=== PATIENT | female | born 1960 | race Caucasian/White ===

== ENCOUNTER 2024-07-12 13:08 | Outpatient (AMB) | payer MEDICARE, MEDICAID, SELFPAY ==
[2024-07-12 13:13] VITALS: BP 127/81; PULSE 79; RESP 18; TEMP 36.8; O2SAT 94; BMI 33.3
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
== END 2024-07-12 13:50 | disposition home or self-care (01) ==
LOC: HODAHC 13:08
PROVIDERS: PCP Student in an Organized Health Care Education/Training Program; Referring Provider Student in an Organized Health Care Education/Training Program; Supervising Provider Internal Medicine; Visit Provider Student in an Organized Health Care Education/Training Program
DX: E66.9 Obesity, unspecified (principal); Z68.33 Body mass index [BMI] 33.0-33.9, adult; Z76.0 Encounter for issue of repeat prescription; Z91.09 Other allergy status, other than to drugs and biological substances
CPT/HCPCS: 99213; G0463

== ENCOUNTER 2024-08-26 14:27 | Outpatient (AMB) | payer MEDICARE, MEDICAID, SELFPAY ==
[2024-08-26 14:40] VITALS: BP 133/75; PULSE 67; RESP 18; TEMP 36.9; O2SAT 95; BMI 34.0
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
== END 2024-08-26 15:08 | disposition home or self-care (01) ==
PROVIDERS: Supervising Provider Internal Medicine; Visit Provider Student in an Organized Health Care Education/Training Program
DX: J06.9 Acute upper respiratory infection, unspecified (principal); H65.111 Acute and subacute allergic otitis media (mucoid) (sanguinous) (serous), right ear; G43.E09 Chronic migraine with aura, not intractable, without status migrainosus
CPT/HCPCS: 99213; G0463

== ENCOUNTER 2024-10-07 13:18 | Outpatient (AMB) | payer MEDICARE, MEDICAID, SELFPAY ==
[2024-10-07 13:37] VITALS: BP 108/72; PULSE 65; RESP 18; TEMP 36.3; O2SAT 96; BMI 32.8
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
== END 2024-10-07 14:45 | disposition home or self-care (01) ==
LOC: HODAHC 13:18
PROVIDERS: Supervising Provider Internal Medicine; Visit Provider Internal Medicine
DX: S39.92XA Unspecified injury of lower back, initial encounter (principal); W18.09XA Striking against other object with subsequent fall, initial encounter; Y92.009 Unspecified place in unspecified non-institutional (private) residence as the place of occurrence of the external cause; G43.E09 Chronic migraine with aura, not intractable, without status migrainosus; R73.03 Prediabetes; E66.9 Obesity, unspecified; Z68.32 Body mass index [BMI] 32.0-32.9, adult
CPT/HCPCS: 72131; 99213; G0463

== ENCOUNTER → 2024-10-07 | Outpatient (CLI) | payer MEDICARE, MEDICAID, SELFPAY ==
--- NOTE | 2024-10-07 15:27 | XR_ITS ---
Examination: CT lumbar spine, without contrast. 2-D sagittal reconstructions. 2-D coronal reconstructions. 3-D reconstructions. Date and time of exam:October 07, 2024 1616 hours INDICATIONS: Patient fell 10 days ago with injury to the lower back followed by severe lower back pain CTDI: vol (mGy):33 DLP: (mGycm):945 Technique: Multiple 1.25 mm axial sections of the lumbar spine without intravenous contrast have been obtained. 2-D sagittal and coronal reconstructions have been obtained. 3-D reconstructions have been obtained. Low dose protocols were performed. One or more of the following dose reduction techniques were used; automated exposure control, adjustment of the mA and/or KV according to patient size, use of iterative reconstruction technique. Findings: Severe osteopenia Lumbar fusion L4-L5 with anatomic alignment, disc spacer No acute lumbar fracture Right hemilaminectomy L4, right hemilaminectomy L5 Sacral visualized segments intact L5-S1 4 mm right paracentral subarticular disc bulge L4-L5 2 mm central lumbar disc bulge L3-L4 no disc protrusion Incidental note mild right hydronephrosis without definite renal or ureteral calculi IMPRESSION: Satisfactory alignment lumbar vertebral bodies including fusion at the L4-L5 level L5-S1 4 mm right paracentral subarticular disc bulge L4-L5 2 mm central lumbar disc bulge Incidental note mild right hydronephrosis, recommend renal sonography follow-up
== END | disposition home or self-care (01) ==
PROVIDERS: PCP Student in an Organized Health Care Education/Training Program; Referring Provider Student in an Organized Health Care Education/Training Program; Visit Provider Student in an Organized Health Care Education/Training Program
DX: S39.92XA Unspecified injury of lower back, initial encounter (principal); W19.XXXA Unspecified fall, initial encounter; M43.26 Fusion of spine, lumbar region; N13.30 Unspecified hydronephrosis; M51.369 Other intervertebral disc degeneration, lumbar region without mention of lumbar back pain or lower extremity pain; M51.379 Other intervertebral disc degeneration, lumbosacral region without mention of lumbar back pain or lower extremity pain
CPT/HCPCS: 72131

== ENCOUNTER 2024-10-10 14:42 | Outpatient (AMB) | payer MEDICARE, MEDICAID, SELFPAY ==
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
== END 2024-10-10 15:04 | disposition home or self-care (01) ==
LOC: HODAHC 14:42
PROVIDERS: PCP Student in an Organized Health Care Education/Training Program; Referring Provider Student in an Organized Health Care Education/Training Program; Supervising Provider Internal Medicine; Visit Provider Student in an Organized Health Care Education/Training Program
DX: N13.30 Unspecified hydronephrosis (principal); S39.92XD Unspecified injury of lower back, subsequent encounter; W18.30XD Fall on same level, unspecified, subsequent encounter
CPT/HCPCS: 99212; 99213; G0463

== ENCOUNTER → 2024-10-18 | Outpatient (CLI) | payer MEDICARE, MEDICAID, SELFPAY ==
--- NOTE | 2024-10-18 12:30 | XR_ITS ---
Examination: Retroperitoneal ultrasound, complete Technique: Multiple high resolution grayscale images of the retroperitoneum obtained, including kidneys and bladder. Exam date and time:October 18, 2024 1213 hours INDICATIONS: Right hydronephrosis noted on lumbar spine examination October 07, 2024 FINDINGS: Right kidney 9.7 x 4.2 x 4.4 cm cortex 1.1 cm Mild hydronephrosis Left kidney 9.8 x 4.4 x 3.4 cm renal cortex 1.5 cm Mild bilateral renal parenchymal scar formation No bladder mass or bladder calculi Bladder prevoid volume 43 cc IMPRESSION: Bilateral renal cortical thinning Mild right hydronephrosis Consider CT scan abdomen pelvis without contrast follow-up to assess etiology of the right hydronephrosis
== END | disposition home or self-care (01) ==
LOC: CDIM 12:02
PROVIDERS: PCP Student in an Organized Health Care Education/Training Program; Referring Provider Student in an Organized Health Care Education/Training Program; Visit Provider Student in an Organized Health Care Education/Training Program
DX: N13.30 Unspecified hydronephrosis (principal)
CPT/HCPCS: 76770

== ENCOUNTER 2024-10-23 15:16 | Outpatient (AMB) | payer MEDICARE, MEDICAID, SELFPAY ==
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
[2024-10-23 17:20] VITALS: BP 119/79; PULSE 83; RESP 19; TEMP 36.5; O2SAT 95
== END 2024-10-23 15:50 | disposition home or self-care (01) ==
LOC: HODAHC 15:16
PROVIDERS: Supervising Provider Internal Medicine; Visit Provider Internal Medicine
DX: N13.30 Unspecified hydronephrosis (principal); E66.9 Obesity, unspecified; Z68.32 Body mass index [BMI] 32.0-32.9, adult; N18.31 Chronic kidney disease, stage 3a; M51.360 Other intervertebral disc degeneration, lumbar region with discogenic back pain only; G89.29 Other chronic pain
CPT/HCPCS: 99213; G0463

== ENCOUNTER 2024-11-20 13:16 | Outpatient (AMB) | payer MEDICARE, MEDICAID, SELFPAY ==
[2024-11-20 13:33] VITALS: BP 127/84; PULSE 69; RESP 16; TEMP 36.8; O2SAT 94; BMI 32.3
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
== END 2024-11-20 13:48 | disposition home or self-care (01) ==
LOC: HODAHC 13:16
PROVIDERS: Supervising Provider Internal Medicine; Visit Provider Student in an Organized Health Care Education/Training Program
DX: J32.9 Chronic sinusitis, unspecified (principal)
CPT/HCPCS: 99213; G0463

== ENCOUNTER 2024-12-16 13:11 | Outpatient (AMB) | payer MEDICARE, MEDICAID, SELFPAY ==
[2024-12-16 13:44] VITALS: BP 132/88; PULSE 85; RESP 16; TEMP 36.8; O2SAT 95; BMI 31.9
--- NOTE | 2024-12-16 13:44 | PD.RESCLINIC ---
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 Reconciliation, Update PMH in EMR and Vital Signs Coordination of Care: Complex Care and Chronic Disease 1-5, Consent,records obtained, informed consent, Education Simp Pt/Fam and Staff clarify orders Established Patient Charge Established Patient Point Assignment: 85 Established Patient Point Charge: EP Level 3 (80-115)
== END 2024-12-16 14:40 | disposition home or self-care (01) ==
LOC: HODAHC 13:11
PROVIDERS: Supervising Provider Internal Medicine; Visit Provider Student in an Organized Health Care Education/Training Program
DX: K52.9 Noninfective gastroenteritis and colitis, unspecified (principal); Z85.3 Personal history of malignant neoplasm of breast
CPT/HCPCS: 99213; G0463

== ENCOUNTER → 2024-12-16 | Outpatient (CLI) | payer MEDICARE, MEDICAID, SELFPAY ==
[2024-12-16 16:00] LABS: Basophils % (Auto) 0 % (0-2.5); Eosinophils # (Auto) 0.1 Thou/mm3 (0.0-0.5); Eosinophils % (Auto) 1 % (0-10); Hematocrit 49.3 % (36.0-46.0); Hemoglobin 16.3 g/dL (12.0-16.0); Immature Granulocytes % (Auto) 0 % (0-0); Immature Granulocytes Auto 0.04 Thou/mm3 (0.00-0.00); Lymphocytes # (Auto) 1.2 Thou/mm3 (1.0-4.8); Lymphocytes % (Auto) 11 % (10-50); Mean Corpuscular HGB Conc 33.1 g/dl (31.0-37.0); Mean Corpuscular Hemoglobin 30.6 pg (25.0-35.0); Mean Corpuscular Volume 93 fL (80-100); Monocytes # (Auto) 0.6 Thou/mm3 (0.0-0.8); Monocytes % (Auto) 5 % (0-12); Neutrophils % (Auto) 82 % (37-80); Nucleated Red Blood Cell % 0 /100 WBC (0); Platelet Count 272 Thou/mm3 (140-440); RDW Standard Deviation 46.3 fL (36.4-46.3); Red Blood Count 5.33 Miln/mm3 (4.00-5.20)
[2024-12-16 16:14] LABS: Albumin, Serum 4.8 gm/dL (3.4-4.8); Anion Gap 10 (7-16); BUN/Creatinine Ratio 13 Ratio (12-20); Blood Urea Nitrogen 15 mg/dL (9-23); Carbon Dioxide 29.3 mMol/L (20.0-31.0); Chloride 104 mMol/L (98-107); Creatinine (Component) 1.2 mg/dL (0.6-1.3); Glucose 106 mg/dL (74-106); Osmolality,Calculated 285 (275-295); Phosphorous 3.5 mg/dL (2.4-5.1); Potassium 4.4 mMol/L (3.4-5.1); Sodium 143 mMol/L (136-145); eGFR 50 See Note
== END | disposition home or self-care (01) ==
PROVIDERS: PCP Student in an Organized Health Care Education/Training Program; Referring Provider Student in an Organized Health Care Education/Training Program; Visit Provider Student in an Organized Health Care Education/Training Program
DX: K52.9 Noninfective gastroenteritis and colitis, unspecified (principal)
CPT/HCPCS: 36415; 80069; 85025

== ENCOUNTER 2025-01-09 13:02 | Outpatient (AMB) | payer MEDICARE, MEDICAID, SELFPAY ==
[2025-01-09 13:19] VITALS: BP 117/77; PULSE 74; RESP 16; TEMP 35.8; O2SAT 95; BMI 32.8
--- NOTE | 2025-01-09 13:19 | ACNOTE_ITS ---
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 depressive disorder, single episode, unspecified Assessment & Plan: -pt has history of majordepression, and is stable Plan: -refilled pts home paroxetine (3) Chronic lower back pain: Status: Acute Qualifiers: Back pain laterality: bilateral Sciatica presence: unspecified whether sciatica present Qualified Code(s): M54.50 - Low back pain, unspecified; G89.29 - Other chronic pain Assessment & Plan: -pt has long hisotry of chronic back pain, for which has been taking oxycodone 10mg and her pain is well controlled Plan: -refill home oxycodone 10mg, cures reviewed (4) Migraine: Status: Acute Qualifiers: Intractability: intractable Migraine type: chronic migraine (15 or more days per month) without aura Status migrainosus presence: without status migrainosus Qualified Code(s): G43.719 - Chronic migraine without aura, intractable, without status migrainosus Assessment & Plan: -Although pt state she is not a fan of taking rizatriptan daily for migrains. However, so far anything else she has tried did not elleviate her migrains. Pt was prescribed an injectable CGRP inhibitor by neurologist, however insurance did not cover it. Plan: -Will reattempt to prescribe injectable CGRP inhibitor for insurance approval. In the mean time , refilled home rizatriptan 10mg (5) Osteoarthritis: Status: Acute Plan: -Refilled home diclofenec cream 1% Orders: Orders Comprehensive Metabolic Panel 1 Month Parathyroid Hormone Intact 1 Month Additional Assessment Internal Medicine Attending Note: Case discussed with and agree with note and management plan of Resident Physician as per Resident's Note above. Issues of concern for present visit are as follows: Follow-up visit. Gastroenteritis symptoms have resolved. Labs reviewed. Renal function stable. Calcium mildly elevated, we will check a serum PTH and repeat the level as well. Needed refills are provided today. Chronic issues as noted. Chronic narcotic pain medication use reviewed. The patient has been on present dose for years. Aware of addiction/dependence nature of medication. No signs of overuse or abuse. Has been prescribed naloxone in April 2024. Blake Roberts MD Advanced Care Planning Advance care planning discussed with:: patient Physician Billing Established Patient Established Patient: E/M Level 3-CPT 47085 Office Procedures [facility] Level of Care Nursing/Assessment Patient Status: Established Patient Nursing Assessment/Reassessment: Medication Reconciliation, Update PMH in EMR and Vital Signs Coordination of Care: Complex Care and Chronic Disease 1-5, Consent,records obtained, informed consent, Education Simp Pt/Fam, Results/Orders obtained and Staff clarify orders Established Patient Charge Established Patient Point Assignment: 90 Established Patient Point Charge: EP Level 3 (80-115)
== END 2025-01-09 14:35 | disposition home or self-care (01) ==
LOC: HODAHC 13:02
PROVIDERS: Supervising Provider Internal Medicine
DX: E83.52 Hypercalcemia (principal); N13.30 Unspecified hydronephrosis; N28.89 Other specified disorders of kidney and ureter; F32.9 Major depressive disorder, single episode, unspecified; G89.29 Other chronic pain; M54.50 Low back pain, unspecified; G43.719 Chronic migraine without aura, intractable, without status migrainosus; M19.90 Unspecified osteoarthritis, unspecified site; Z76.0 Encounter for issue of repeat prescription
CPT/HCPCS: 99213; G0463

== ENCOUNTER 2025-02-26 14:44 | Outpatient (AMB) | payer MEDICARE, MEDICAID, SELFPAY ==
[2025-02-26 15:07] VITALS: BP 130/86; PULSE 72; RESP 18; TEMP 36.6; O2SAT 97; BMI 33.0
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
== END 2025-02-26 15:38 | disposition home or self-care (01) ==
LOC: HODAHC 14:44
PROVIDERS: Supervising Provider Internal Medicine
DX: S80.262A Insect bite (nonvenomous), left knee, initial encounter (principal); W57.XXXA Bitten or stung by nonvenomous insect and other nonvenomous arthropods, initial encounter
CPT/HCPCS: 99213; G0463

== ENCOUNTER → 2025-02-27 | Outpatient (CLI) | payer MEDICARE, MEDICAID, SELFPAY ==
[2025-02-27 13:21] LABS: Parathyroid Hormone Intact 82.6 pg/ml (18.5-88.0)
[2025-02-27 13:23] LABS: Alanine Aminotransferase 20 U/L (10-49); Albumin, Serum 4.4 gm/dL (3.4-4.8); Albumin/Globulin Ratio 1.8 (1.2-2.2); Alkaline Phosphatase 78 U/L (46-116); Anion Gap 10 (7-16); Aspartate Amino Transferase 23 U/L (0-34); BUN/Creatinine Ratio 12 Ratio (12-20); Bilirubin,Total 0.7 mg/dL (0.3-1.2); Blood Urea Nitrogen 14 mg/dL (9-23); Calcium 9.4 mg/dL (8.3-10.6); Calcium (Corrected) 9.4 mg/dL (8.5-10.1); Carbon Dioxide 31.9 mMol/L (20.0-31.0); Chloride 105 mMol/L (98-107); Creatinine (Component) 1.2 mg/dL (0.6-1.3); Globulin 2.5 gm/dL (2.3-3.5); Glucose 110 mg/dL (74-106); Osmolality,Calculated 293 (275-295); Phosphorous 3.4 mg/dL (2.4-5.1); Potassium 4.8 mMol/L (3.4-5.1); Sodium 147 mMol/L (136-145); Total Protein 6.9 gm/dL (5.7-8.2); eGFR 50 See Note
== END | disposition home or self-care (01) ==
DX: Z00.00 Encounter for general adult medical examination without abnormal findings (principal)
CPT/HCPCS: 36415; 80053; 83970; 84100

== ENCOUNTER → 2025-02-28 | Outpatient (CLI) | payer MEDICARE, MEDICAID, SELFPAY ==
--- NOTE | 2025-02-28 14:00 | XR_ITS ---
Examination: CT abdomen and pelvis without contrast. Coronal 3-D reconstructions. Sagittal 2-D reconstructions. Date and time of exam:February 28, 2025 1428 hours INDICATIONS: Back pain worsening flank pain several days CTDI: vol (mGy): 12.7 DLP: (mGycm): 64 Technique: Axial images of the abdomen have been obtained, 3 mm slice thickness Intravenous contrast material has not been administered. Low dose protocols were performed. One or more of the following dose reduction techniques were used; automated exposure control, adjustment of the mA and/or KV according to patient size, use of iterative reconstruction technique. Findings: No focal liver or splenic lesion Lap band device Spleen is not enlarged No pancreatic mass Mild right hydronephrosis, no ureteral calculi No pericecal inflammatory change Colonic diverticulosis, no diverticulitis Urinary bladder intact Artificial disc L4-L5 IMPRESSION: Mild right hydronephrosis, no ureteral calculi, consider urinary tract infection
== END | disposition home or self-care (01) ==
LOC: CCTX 13:32
PROVIDERS: PCP Student in an Organized Health Care Education/Training Program; Referring Provider Student in an Organized Health Care Education/Training Program; Visit Provider Student in an Organized Health Care Education/Training Program
DX: N13.30 Unspecified hydronephrosis (principal)
CPT/HCPCS: 74176

== ENCOUNTER 2025-03-12 14:24 | Outpatient (AMB) | payer MEDICARE, MEDICAID, SELFPAY ==
[2025-03-12 15:04] VITALS: BP 144/85; PULSE 72; RESP 18; TEMP 36.8; O2SAT 95; BMI 32.8
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
== END 2025-03-12 16:01 | disposition home or self-care (01) ==
LOC: HODAHC 14:24
DX: N30.00 Acute cystitis without hematuria (principal)
CPT/HCPCS: 81001; 87077; 87086; 87186; 99213; G0463

== ENCOUNTER → 2025-03-12 | Outpatient (CLI) | payer MEDICARE, MEDICAID, SELFPAY ==
[2025-03-12 15:58] LABS: Collection Type, Urine Clean Catch
[2025-03-12 16:40] LABS: Bacteria,Urine 1+; Bilirubin,Urine Negative (Negative); Blood,Urine 1+ (Negative); Glucose, Urine Negative (Negative); Ketones,Urine Negative (Negative); Leukocyte Esterase,Urine Positive (Negative); Nitrite,Urine Positive (Negative); Protein,Urine 1+ (Neg - Trace); RBC,Urine 13 /hpf (0-3); Squamous Epithelial Cell,Urine 5 /hpf (0-5); Urobilinogen,Urine Negative mg/dL (0.0-1.0); WBC,Urine 2168 /hpf (0-5)
[2025-03-12 16:43] LABS: Clarity,Urine Cloudy (Clear/Hazy); Color,Urine Lt Yellow (Lt Yel-Yel); Culture Indicated,Urine Yes
== END | disposition home or self-care (01) ==
DX: R39.9 Unspecified symptoms and signs involving the genitourinary system (principal)
CPT/HCPCS: 81001; 87077; 87086; 87186

== ENCOUNTER 2025-03-19 13:50 | Outpatient (AMB) | payer MEDICARE, MEDICAID, SELFPAY ==
[2025-03-19 14:13] VITALS: BP 113/74; PULSE 82; RESP 18; TEMP 36.4; O2SAT 91; BMI 32.1
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
== END 2025-03-19 14:44 | disposition home or self-care (01) ==
LOC: HODAHC 13:50
PROVIDERS: Supervising Provider Internal Medicine
DX: N30.00 Acute cystitis without hematuria (principal)
CPT/HCPCS: 99213; G0463

== ENCOUNTER 2025-03-26 14:52 | Outpatient (AMB) | payer MEDICARE, MEDICAID, SELFPAY ==
[2025-03-26 15:03] VITALS: BP 122/85; PULSE 75; RESP 17; TEMP 35.9; O2SAT 93; BMI 32.5
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
== END 2025-03-26 16:04 | disposition home or self-care (01) ==
LOC: HODAHC 14:52
PROVIDERS: Supervising Provider Internal Medicine
DX: R10.32 Left lower quadrant pain (principal); R10.31 Right lower quadrant pain; M53.3 Sacrococcygeal disorders, not elsewhere classified
CPT/HCPCS: 99213; G0463

== ENCOUNTER 2025-04-11 10:49 | Outpatient (AMB) | payer MEDICARE, MEDICAID, SELFPAY ==
[2025-04-11 11:45] VITALS: BP 148/85; PULSE 72; RESP 18; TEMP 36.8; O2SAT 95; BMI 33.5
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
== END 2025-04-11 13:13 | disposition home or self-care (01) ==
LOC: HODAHC 10:49
PROVIDERS: Supervising Provider Internal Medicine
DX: S39.92XA Unspecified injury of lower back, initial encounter (principal); W19.XXXA Unspecified fall, initial encounter; Y93.89 Activity, other specified; Y92.810 Car as the place of occurrence of the external cause; R20.2 Paresthesia of skin; M79.604 Pain in right leg
CPT/HCPCS: 99213; G0463

== ENCOUNTER 2025-04-25 09:40 | Outpatient (AMB) | payer MEDICARE, MEDICAID, SELFPAY ==
[2025-04-25 10:07] VITALS: BP 131/85; PULSE 71; RESP 18; TEMP 36.6; O2SAT 97; BMI 33.3
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
== END 2025-04-25 11:10 | disposition home or self-care (01) ==
LOC: HODAHC 09:40
PROVIDERS: Supervising Provider Internal Medicine
DX: S39.92XA Unspecified injury of lower back, initial encounter (principal); W19.XXXA Unspecified fall, initial encounter; R20.2 Paresthesia of skin; N30.00 Acute cystitis without hematuria; M51.360 Other intervertebral disc degeneration, lumbar region with discogenic back pain only
CPT/HCPCS: 72100; 99213; G0463

== ENCOUNTER → 2025-04-25 | Outpatient (CLI) | payer MEDICARE, MEDICAID, SELFPAY ==
--- NOTE | 2025-04-25 | XR_ITS ---
Examination: Lumbar spine 3 views Technique one AP lateral coned lateral lower lumbar spine 3 views Date and time: April 25, 2025 1141 hours INDICATIONS: Patient fell 2 weeks ago with injury to lower back, lower back pain, history multiple lumbar spine surgeries. FINDINGS: Moderate osteopenia. Lumbar fusion L4-L5 with satisfactory alignment, satisfactory position orthopedic hardware Diffuse mild lumbar disc narrowing No spondylolisthesis No lumbar fracture IMPRESSION:: Lumbar fusion L4-L5 with satisfactory alignment Mild diffuse lumbar degenerative disc disease
== END | disposition home or self-care (01) ==
DX: M51.360 Other intervertebral disc degeneration, lumbar region with discogenic back pain only (principal); M43.26 Fusion of spine, lumbar region; S39.92XA Unspecified injury of lower back, initial encounter; W19.XXXA Unspecified fall, initial encounter
CPT/HCPCS: 72100

== ENCOUNTER → 2025-04-25 | Outpatient (CLI) | payer MEDICARE, MEDICAID, SELFPAY ==
[2025-04-25 12:23] LABS: Collection Type, Urine Clean Catch; RBC,Urine 0 /hpf (0-3)
[2025-04-25 13:35] LABS: Bilirubin,Urine Negative (Negative); Blood,Urine Negative (Negative); Clarity,Urine Clear (Clear/Hazy); Color,Urine Lt-Yellow (Lt Yel-Yel); Culture Indicated,Urine Not Indicated; Glucose, Urine Negative (Negative); Ketones,Urine Negative (Negative); Leukocyte Esterase,Urine Negative (Negative); Nitrite,Urine Negative (Negative); PH,Urine 5.5 (5.0-7.0); Protein,Urine Negative (Neg - Trace); Specific Gravity,Urine 1.014 (1.001-1.035); Squamous Epithelial Cell,Urine 1 /hpf (0-5); Urobilinogen,Urine Negative mg/dL (0.0-1.0); WBC,Urine < 1 /hpf (0-5)
== END | disposition home or self-care (01) ==
DX: R39.9 Unspecified symptoms and signs involving the genitourinary system (principal)
CPT/HCPCS: 81001

== ENCOUNTER → 2025-05-06 | Outpatient (CLI) | payer MEDICARE, MEDICAID, SELFPAY ==
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
== END | disposition home or self-care (01) ==
LOC: SMRI 14:35
DX: M51.360 Other intervertebral disc degeneration, lumbar region with discogenic back pain only (principal); G95.20 Unspecified cord compression
CPT/HCPCS: 72148

== ENCOUNTER 2025-05-22 13:59 | Outpatient (AMB) | payer MEDICARE, MEDICAID, SELFPAY ==
[2025-05-22 14:24] VITALS: BP 99/66; PULSE 94; RESP 18; TEMP 36.4; O2SAT 96; BMI 32.8
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
== END 2025-05-22 15:09 | disposition home or self-care (01) ==
LOC: HODAHC 13:59
DX: M51.370 Other intervertebral disc degeneration, lumbosacral region with discogenic back pain only (principal); G95.29 Other cord compression; N32.81 Overactive bladder; J30.2 Other seasonal allergic rhinitis; R21 Rash and other nonspecific skin eruption; E78.5 Hyperlipidemia, unspecified
CPT/HCPCS: 99213; G0463

== ENCOUNTER → 2025-05-27 | Outpatient (CLI) | payer MEDICARE, MEDICAID, SELFPAY ==
[2025-05-27 11:48] LABS: Basophils # (Auto) 0.1 Thou/mm3 (0.0-0.2); Basophils % (Auto) 1 % (0-2.5); Eosinophils # (Auto) 0.3 Thou/mm3 (0.0-0.5); Eosinophils % (Auto) 4 % (0-10); Hematocrit 45.8 % (36.0-46.0); Hemoglobin 15.3 g/dL (12.0-16.0); Immature Granulocytes Auto 0.02 Thou/mm3 (0.00-0.00); Lymphocytes # (Auto) 1.9 Thou/mm3 (1.0-4.8); Lymphocytes % (Auto) 27 % (10-50); Mean Corpuscular HGB Conc 33.4 g/dl (31.0-37.0); Mean Corpuscular Hemoglobin 31.0 pg (25.0-35.0); Mean Corpuscular Volume 93 fL (80-100); Monocytes # (Auto) 0.4 Thou/mm3 (0.0-0.8); Monocytes % (Auto) 6 % (0-12); Neutrophils # (Auto) 4.2 Thou/mm3 (1.8-7.7); Neutrophils % (Auto) 61 % (37-80); Nucleated Red Blood Cell # 0.00 Thou/mm3 (0.00-0.00); Nucleated Red Blood Cell % 0 /100 WBC (0); Platelet Count 282 Thou/mm3 (140-440); RDW Standard Deviation 47.0 fL (36.4-46.3); Red Blood Count 4.93 Miln/mm3 (4.00-5.20); White Blood Count 6.9 Thou/mm3 (3.6-11.0)
[2025-05-27 11:51] LABS: Glucose Estimated Average 117 mg/dL (80-131); Hemoglobin A1C 5.7 % Hgb (4.8-6.0)
[2025-05-27 12:00] LABS: T4 (Thyroxine) 7.2 mcg/dL (4.5-10.9)
[2025-05-27 12:02] LABS: Alanine Aminotransferase 17 U/L (10-49); Albumin, Serum 4.4 gm/dL (3.4-4.8); Albumin/Globulin Ratio 1.8 (1.2-2.2); Alkaline Phosphatase 82 U/L (46-116); Anion Gap 10 (7-16); Aspartate Amino Transferase 19 U/L (0-34); BUN/Creatinine Ratio 13 Ratio (12-20); Bilirubin,Total 0.6 mg/dL (0.3-1.2); Blood Urea Nitrogen 15 mg/dL (9-23); Calcium 10.5 mg/dL (8.3-10.6); Calcium (Corrected) 10.5 mg/dL (8.5-10.1); Carbon Dioxide 32.3 mMol/L (20.0-31.0); Cardiac Risk Estimate 2.8 RATIO (3.7-5.6); Chloride 104 mMol/L (98-107); Cholesterol 254 mg/dL (132-200); Creatinine (Component) 1.2 mg/dL (0.6-1.3); Globulin 2.4 gm/dL (2.3-3.5); Glucose 98 mg/dL (74-106); HDL Cholesterol 91 mg/dL (40-60); LDL Cholesterol,Calculated 145 mg/dL (0-130); Osmolality,Calculated 291 (275-295); Potassium 5.0 mMol/L (3.4-5.1); Sodium 146 mMol/L (136-145); Thyroid Stimulating Hormone 2.06 uIU/mL (0.55-4.78); Total Protein 6.8 gm/dL (5.7-8.2); Triglycerides 89 mg/dL (30-150); Vitamin D 25 Hydroxy Total 31.5 ng/mL (7.3-40.2); eGFR 50 See Note
[2025-05-28 11:52] LABS: Cocci Serology, IgM Negative (Negative)
[2025-05-30 11:05] LABS: Cocci Serology, IgG Negative (Negative)
== END | disposition home or self-care (01) ==
LOC: COPL 10:20
DX: E78.5 Hyperlipidemia, unspecified (principal); E66.01 Morbid (severe) obesity due to excess calories
CPT/HCPCS: 36415; 80053; 80061; 82306; 83036; 84436; 84443; 85025; 86331; 86635

== ENCOUNTER 2025-06-06 09:12 | Outpatient (AMB) | payer MEDICARE, MEDICAID, SELFPAY ==
[2025-06-06 09:34] VITALS: BP 103/67; PULSE 77; RESP 17; TEMP 36.3; O2SAT 96; BMI 33.3
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
== END 2025-06-06 10:52 | disposition home or self-care (01) ==
LOC: HODAHC 09:12
PROVIDERS: Supervising Provider Internal Medicine
DX: S39.92XA Unspecified injury of lower back, initial encounter (principal); W17.89XA Other fall from one level to another, initial encounter; H91.91 Unspecified hearing loss, right ear; M51.360 Other intervertebral disc degeneration, lumbar region with discogenic back pain only; G95.29 Other cord compression
CPT/HCPCS: 99213; G0463

== ENCOUNTER 2025-06-29 14:48 | Observation (INO) | payer MEDICARE, MEDICAID, SELFPAY ==
[2025-06-29] VITALS (11 sets, daily range): BP systolic 108–147; BP diastolic 77–92; PULSE 78–225; RESP 14–96; TEMP 37–37.1; O2SAT 97–100
[2025-06-29] MEDS: FAMOTIDINE INJ 10 MG/ML VIAL 2 ML 40 MG IVP (15:25)
[2025-06-29] MEDS: MethylPREDNISolone SOD SUCC 62.5 MG/ML 2ML VIAL 125 MG IVP (15:25)
--- NOTE | 2025-06-29 15:28 | EKG_ITS ---
[facility] Test Date: 2025-06-29 Pat Name: JEROD MCDOWELL Department: Room: - Gender: Female [employer]: : 1960 Requested By: Mathieu Beltran Order Number: [id number] Reading MD: Mathieu Beltran Measurements Intervals [place] Rate: 77 P: 18 MO: 190 QRS: 228 QRSD: 101 T: 13 QT: 374 QTc: 425 Interpretive Statements SINUS RHYTHM POSSIBLE RIGHT VENTRICULAR HYPERTROPHY [SOME/ALL OF: PROMINENT R IN V1, LATE TRANSITION, RAD, AMADOR, SSS] POSSIBLE ANTERIOR MYOCARDIAL INFARCTION , PROBABLY OLD [30 ms Q WAVE IN V3/V4, OR R < 0.2 mV IN V4] Compared to ECG 02/04/2023 18:51:27 Left anterior fascicular block no longer present Myocardial infarct finding still present /store/S0/[id number]/ecg/[id number]
--- NOTE | 2025-06-29 15:28 | XR_ITS ---
Examination: PA chest single view Technique upright PA chest single view Date and time: June 29, 2025, 1533 hrs. Indications: Difficulty breathing today. Findings: Mild prominence of ventricle Mild elevation right hemidiaphragm. No pneumonia or pulmonary edema Moderate osteopenia Impression: No active disease
[2025-06-29] MEDS: RINGERS LACTATED 1000 ML 1,000 ML 999 ML IV (15:30)
--- NOTE | 2025-06-29 15:37 | EDNOTE_ITS ---
ED SOB =RME/HPI General Chief Complaint: Arrhythmia/Palpitations Stated Complaint: STUNG BY RED ANTS, DIFF BREATHING Time Seen by Provider: 06/29/25 15:06 Arrival date/time: 06/29/25 14:48 Limitations: no limitations RME / HPI RME / HPI Narrative: DR. TREJO MAIN ED EVALUATION: 64-year-old female presents to the Emergency Department with complaints of shortness of breath and allergic reaction after being bitten by red ants approximately 2 hours prior to arrival, which she is allergic to. She reports associated lightheadedness and dizziness. 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 Allergies include bacitracin, neomycin, and polymyxin B. Allergies to red aunts as well. Related Data Previous Rx's ?Medication ?Instructions ?Recorded inhalational spacing device #1 ea 01/13/24 (BreatheRite Valved MDI Chamber spacer) naloxone 4 mg/actuation nasal 4 mg intranasal Q2M PRN opioid 04/03/24 spray (Narcan) overdose #2 ea gabapentin 300 mg capsule 300 mg PO BID #60 caps 06/10 atorvastatin 40 mg tablet 40 mg PO QHS #30 tabs cholecalciferol (vitamin D3) 1,250 1,250 mcg PO QWEEK #4 caps 07/26/24 mcg (50,000 unit) capsule fexofenadine 180 mg tablet 180 mg PO QDAY #30 tabs montelukast 10 mg tablet 10 mg PO QDAY 30 days #30 ta bs 10/23/24 nystatin 100,000 unit/gram topical 1 applic topical BI D #30 grams 10/23/24 powder trazodone 50 mg tablet 50 mg PO QHS 30 days #30 tab s 10/23/24 albuterol sulfate 90 mcg/actuation 2 inh inhalation Q6 H PRN shortness 10/24/24 breath activated powder inhaler of breath or wheezing #1 ea tirzepatide (weight loss) 2.5 2.5 mg (0.5 mL) subcut Q WEEK #2 mL 11/14/24 mg/0.5 mL subcutaneous pen injector promethazine 25 mg tablet 25 mg PO TID PRN nausea and 12/16/24 vomiting #7 tabs scopolamine base 1 mg over 3 days 1 patch transdermal Q3D persistent 12/16/24 transdermal patch vomiting #4 ea triamcinolone acetonide 0.5 % 1 applic topical BID #15 grams 02/26/25 topical cream methocarbamol 750 mg tablet 750 mg PO TID PRN muscle p ain 30 03/12/25 days #90 tabs paroxetine HCl 30 mg tablet 30 mg PO QDAY 30 days #30 tabs 04/10/25 rizatriptan 10 mg tablet 10 mg PO .COMPLEX #30 tabs 0 04/10/25 oxycodone 10 mg tablet 10 mg PO QID PRN pain #120 t abs 05/27/25 diclofenac sodium 1 % topical gel 4 g topical QID #3 t ubes 06/06/25 (Arthritis Pain (diclofenac)) ondansetron HCl 4 mg tablet 4 mg PO Q8H PRN nausea and 06/06/25 vomiting #90 tabs tolterodine 4 mg capsule,extended 4 mg PO QDAY 1 month #30 caps 06/06/25 release 24 hr Allergies Allergy/AdvReac Type Severity Reaction Status Date / Time bacitracin (From Allergy Intermediate Rash Verified 06/29/25 15:33 Polysporin(bacitracin base)) neomycin Allergy Intermediate Rash Verified 06/29/25 15:33 polymyxin B (From Allergy Intermediate Rash Verified 06/29/25 15:33 Polysporin(bacitracin base)) bee venom protein (honey bee) AdvReac Severe Anaphylaxis Verified 06/29/25 15:33 red ants AdvReac Severe Anaphylaxis Uncoded 06/29/25 15:33 Review of Systems Review of Systems Systems Reviewed: All systems reviewed, normal except as documented Past Medical History Past Medical History NEUROLOGIC: Positive Migraine and Spinal Cord Injury RESPIRATORY: Positive Asthma (seasonal) GASTROINTESTINAL: Positive Gall Bladder Disease, Gastrointestinal Bleed (from diverticulitis) and Diverticulitis GENITOURINARY: Positive Genitourinary Disorders (suspended bladder 5- 6 times) REPRODUCTIVE: Positive Breast Cancer (jace), Endometriosis and Uterine Prolapse MUSCULOSKELETAL: Positive Arthritis and Fractures (spine and neck) ENT: Positive Ear Infection PSYCHO/SOCIAL: Positive Anxiety OTHER HISTORY: Positive Radiation Therapy (oct), Chicken Pox, Measles and Breast Cancer (jace) Surgical History SURGICAL: Positive Ear Surgery, Eye Surgery (right), Abdominal Surgery (lap band not in use), Gastric Bypass Surgery, Neurologic Surgery, Mastectomy (jace.) and Hysterectomy Social History SMOKING STATUS: Never smoker SECOND HAND EXPOSURE: No SUBSTANCE USE: does not use ED Exam General Limitations: Present no limitations General appearance: Present alert, in distress (uncomfortable in mild distress) and other (no stridor) Head Head exam: Present atraumatic, normocephalic and normal inspection Eye Eye exam: Present normal appearance, PERRL and EOMI ENT ENT exam: Present normal exam, normal oropharynx and mucous membranes moist Neck Neck exam: Present normal inspection, full ROM and trachea midline Chest Chest inspection: Present normal inspection and symmetric chest wall rise Respiratory Respiratory exam: Present normal lung sounds bilaterally Cardiovascular Cardiovascular exam: Present regular rate, normal rhythm and normal heart sounds Abdominal Exam Abdominal exam: Present soft and normal bowel sounds Extremities Exam Extremities exam: Present full ROM Back Exam Back exam: Present normal inspection and full ROM Neurological Exam Neurological exam: Present alert, oriented X3 and CN II-XII intact Psychiatric Psychiatric exam: Present normal affect and normal mood Skin Skin exam: Present warm and other (scattered area of erythema of the lower and upper extremities) Course Quality Measures none Orders Category Date Time Status Set Illustrator Q4H START 00 Care 06/29/25 15:41 Active EKG (ED ONLY) *Do not use* NOW Care 06/29/25 15:28 Completed EKG (ED Only) Stat Exams 06/29/25 15:28 Ordered XR chest 1V Stat Exams 06/29/25 15:28 Completed B-Type Natriuretic Peptide Stat Lab 06/29/25 15:20 Completed CBC Stat Lab 06/29/25 15:20 Completed Comprehensive Metabolic Panel Stat Lab 06/29/25 16:28 Completed Drug Screen,Urine Stat Lab 06/29/25 16:20 Completed LDH (Lactate Dehydrogenase) Stat Lab 06/29/25 16:28 Completed Magnesium Stat Lab 06/29/25 16:28 Completed Partial Thromboplastin Time Stat Lab 06/29/25 16:28 Completed Prothrombin Time with INR Stat Lab 06/29/25 16:28 Completed T4 (Thyroxine) Stat Lab 06/29/25 16:28 Completed Thyroid Stimulating Hormone Stat Lab 06/29/25 16:28 Completed Troponin I Stat Lab 06/29/25 16:28 Completed Urinalysis, C/S if Indicated Stat Lab 06/29/25 16:20 Completed Adenosine 6mg Inj [Adenocard Inj] Med 06/29/25 15:41 Discontinued 12 mg .ROUTE .STK-MED ONE Adenosine 6mg Inj [Adenocard Inj] Med 06/29/25 15:20 Discontinued 6 mg IVP X1 ONE DiphenhydrAMINE INJ [Benadryl Inj] Med 06/29/25 15:12 Discontinued 50 mg IVP X1 ONE Famotidine Inj [Pepcid Inj] Med 06/29/25 15:15 Discontinued 20 mg .ROUTE .STK-MED ONE Famotidine Inj [Pepcid Inj] Med 06/29/25 15:12 Discontinued 40 mg IVP X1 ONE LORazepam [Ativan] Med 06/29/25 15:28 Discontinued 0.5 mg PO X1 ONE Labetalol IV [Trandate IV] Med 06/29/25 15:29 Discontinued 10 mg IVP X1 ONE Labetalol IV [Trandate IV] Med 06/29/25 15:46 Discontinued 5 mg IVP X1 ONE MethylPREDNISolone.* [SoluMEDROL Inj] Med 06/29/25 15:15 Discontinued 125 mg .ROUTE .STK-MED ONE MethylPREDNISolone.* [SoluMEDROL Inj] Med 06/29/25 15:12 Discontinued 125 mg IVP X1 ONE Ringers Lactated 1000 ml [Lactated Ringers] 1,000 ml Med 06/29/25 15:12 Discontinued IV 999 mls/hr Vital Signs Vital signs: Vital Signs Temperature 98.6 F 06/29/25 15:03 Pulse Rate 225 H 06/29/25 15:03 Respiratory Rate 28 H 06/29/25 15:03 Pulse Oximetry (%) 98 06/29/25 15:03 Oxygen Delivery Method Room Air 06/29/25 15:03 Shortness of Breath / Dyspnea MDM Narrative MDM Narrative:: Patient is a 64-year-old female with medical history notable for hyperlipidemia asthma, breast cancer status post bilateral mastectomy in May 2022, radiation and hormonal therapy, multiple musculoskeletal surgeries that in the emergency d epartment feeling lightheaded, after being bit by multiple fire ants. Patient had a scattered rash maculopapular on her upper and lower extremities, approximately 2 to 3 mm lesions, without surrounding warmth or erythema fluctuance or crepitus, not raised less likely hives. Patient not in respiratory distress, no stridor, no oropharyngeal swelling, less likely anaphylactic reaction. Patient is allergic to bee stings. Patient also presented with SVT with a heart rate in the 240s, patient did not respond to ice, nor bearing down however she did respond to Valsalva through blowing through a syringe. Patient went into SVT greater than 5 times with heart rates up in the 240s to 60s. Blood pressure maintained greater than 140s throughout, and patient mentation was always maintained. I did provide patient with methylprednisolone and famotidine for the possible allergic reaction however no Benadryl because she had taken at home, no epinephrine because of no sign of respiratory distress and patient head CT. Given patient went into SVT multiple times, we were going to cardiovert with adenosine however patient responded once again well to Valsalva through a syringe at which point we provided patient with labetalol which resulted in patient maintaining her heart rate in the 70s blood pressure appropriate. We ordered labs EKG and chest x-ray. Labs without leukocytosis, no left shift, patient hemoglobin 16.9. Metabolic panel without any acute electrolyte abnormality, no significant electrolyte abnormalities, troponin 0.037 BNP not elevated thyroid studies unremarkable. Chest x-ray unremarkable. Given patient presentation, will consult rose grader and request admission given recurrent episodes of SVT and patient does not have any cardiovascular disease history. Elisabeth Manzanares am scribing for and in the presence of Dr. Trejo. 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 Allergies include bacitracin, neomycin, and polymyxin B. Allergies to red aunts as well. How is presenting disease/condition affected by chronic disease/condition?: exacerbated by Evaluation data The following diagnostics were reviewed and interpreted by me:: lab results, radiology exam(s) and EKG tracing(s) Lab and/or radiology exams considered but not ordered:: none Interpretation Summary: See MDM narrative above. RADIOLOGY Procedure(s): XR chest 1V Accession Number(s): [id number] cc: Mathieu Coe NP; Samuel Larkin MD; NO PRIMARY/FAMILY,PHYSICIAN~ Examination: PA chest single view Technique upright PA chest single view Date and time: June 29, 2025, 1533 hrs. Indications: Difficulty breathing today. Findings: Mild prominence of ventricle Mild elevation right hemidiaphragm. No pneumonia or pulmonary edema Moderate osteopenia Impression: No active disease Dictated By: Samuel Larkin MD Medications / Prescriptions Medications or Prescriptions considered but not ordered:: none Medication administrations:: Medication Administration History Discontinued Medications Adenosine (Adenosine Inj 3 Mg/Ml Vial) 6 mg IVP X1 ONE Stop: 06/29/25 15:21 Last Admin: 06/29/25 17:52 Dose: Not Given Documented By: DB Non-Admin Reason: Change of Condition Adenosine (Adenosine Inj 3 Mg/Ml Vial) Confirm Administered Dose 12 mg .ROUTE .STK-MED ONE Stop: 06/29/25 15:42 Last Admin: 06/29/25 15:49 Dose: Not Given Documented By: DB Non-Admin Reason: Duplicate Medication on eMAR Diphenhydramine HCl (Diphenhydramine Inj 50 Mg/Ml Vial) 50 mg IVP X1 ONE Stop: 06/29/25 15:13 Last Admin: 06/29/25 15:29 Dose: Not Given Documented By: DB Non-Admin Reason: Cancelled by Provider Famotidine (Famotidine Inj 10 Mg/Ml Vial 2 Ml) 40 mg IVP X1 ONE Stop: 06/29/25 15:13 Last Admin: 06/29/25 15:25 Dose: 40 mg Documented By: JENS Famotidine (Famotidine Inj 10 Mg/Ml Vial 2 Ml) Confirm Administered Dose 20 mg .ROUTE .STK-MED ONE Stop: 06/29/25 15:16 Last Admin: 06/29/25 15:28 Dose: Not Given Documented By: JENS Non-Admin Reason: Duplicate Medication on eMAR Lactated Ringer's (Lactated Ringers) 1,000 mls @ 999 mls/hr IV .Q1H1M ONE Stop: 06/29/25 16:12 Last Infusion: 06/29/25 17:51 Dose: Infused Documented By: Admin: 06/29/25 15:30 Dose: 999 mls/hr Documented By: JENS Labetalol HCl (Labetalol Inj 5 Mg/Ml Vial 20 Ml) 10 mg IVP X1 ONE Stop: 06/29/25 15:30 Last Admin: 06/29/25 17:52 Dose: Not Given Documented By: JENS Non-Admin Reason: Change of Condition Labetalol HCl (Labetalol Inj 5 Mg/Ml Vial 20 Ml) 5 mg IVP X1 ONE Stop: 06/29/25 15:47 Last Admin: 06/29/25 15:48 Dose: 5 mg Documented By: JENS Lorazepam (Lorazepam 0.5 Mg Tablet) 0.5 mg PO X1 ONE Stop: 06/29/25 15:29 Last Admin: 06/29/25 15:44 Dose: 0.5 mg Documented By: JENS Methylprednisolone Sodium Succinate (Methylprednisolone Sod Succ 62.5 Mg/Ml 2ml Vial) 125 mg IVP X1 ONE Stop: 06/29/25 15:13 Last Admin: 06/29/25 15:25 Dose: 125 mg Documented By: JENS Methylprednisolone Sodium Succinate (Methylprednisolone Sod Succ 62.5 Mg/Ml 2ml Vial) Confirm Administered Dose 125 mg .ROUTE .STK-MED ONE Stop: 06/29/25 15:16 Last Admin: 06/29/25 15:27 Dose: Not Given Documented By: JENS Non-Admin Reason: Duplicate Medication on eMAR see above Consultations Consultation(s) initiated? (list below): Yes Consultation #1 (Physician, Specialty, Details): Discussed test HPI, PMHx, lab, radiology results and/or management with resident working with the hospitalist. Will admit for further evaluation and management. Accepts patient for admission. Time: 17:56 Diagnosis Shortness of Breath Differential Diagnosis: other (Anaphylaxis, systemic allergic reaction, and anxiety-related dyspnea.) Most likely diagnosis given after review of the tests above:: See below under clinical impression Admission Indicated Admission indicated?: indicated Admission Request Was there a request for admission?: Yes Admission Attestation Admission request attestation: Discussed case with [] from Hospitalist service regarding admission. Discussed patients ED course, exam findings, labs, and radiology results. The Hospitalist [agrees,declines] to accept the patient for admission. Disposition Plan Disposition Plan: Admit Critical Care Time Critical Care Time Critical Care Time: Yes Total Critical Care Time (min.): 45 Attestation: The high probability of sudden, clinically significant deterioration in the oli ent?s condition required the highest level of my preparedness to intervene urgently. The services I provided to this patient were to treat and/or prevent clinically significant deterioration. Services included the following: chart data review, reviewing nursing notes and/or old charts, documentation time, distributor sales consultant collaboration regarding findings and treatment options, medication orders and ma nagement, direct patient care, vital sign assessments and ordering, interpreting and reviewing diagnostic studies and lab tests. Aggregate critical care time includes only time during which I was engaged in work directly related to the patient?s care, as described above, whether at bedside or elsewhere in the Emergency Department. It did not include time spent performing other reported procedures or the services of residents, students, nurses or physician assistants. Discharge Plan Prescriptions/Referrals Prescriptions/Med Rec: No Action (DME) BreatheRite Valved MDI Chamber Spacer See Rx Instructions .Route Qty: 1 0RF Rx Instructions: As directed naloxone [Narcan] 4 mg/actuation spray,non-aerosol 4 mg intranasal Q2M PRN (Reason: opioid overdose) Qty: 2 0RF Rx Instructions: spray 1 dose into ONE nostril; alternate nostrils w each dose fexofenadine 180 mg tablet 180 mg PO QDAY MDD 180 mg Qty: 30 5RF scopolamine base 1 mg over 3 days patch 3 day 1 patch transdermal Q3D Qty: 4 0RF promethazine 25 mg tablet 25 mg PO TID PRN (Reason: nausea and vomiting) Qty: 7 0RF Rx Instructions: to take instead of zofran triamcinolone acetonide 0.5 % cream 1 applic topical BID Qty: 15 0RF methocarbamol 750 mg tablet 750 mg PO TID PRN (Reason: muscle pain) 30 Days Qty: 90 2RF oxycodone 10 mg tablet 10 mg PO QID MDD 4 PRN (Reason: pain) Qty: 120 0RF diclofenac sodium [Arthritis Pain (diclofenac)] 1 % gel 4 g topical QID Qty: 3 3RF Rx Instructions: apply to single knee, ankle, foot; for foot includes sole/toes/top of foot ondansetron HCl 4 mg tablet 4 mg PO Q8H PRN (Reason: nausea and vomiting) Qty: 90 1RF tolterodine 4 mg capsule,extended release 24hr 4 mg PO QDAY 30 Days Qty: 30 3RF gabapentin 300 mg capsule 300 mg PO BID Qty: 60 0RF Rx Instructions: For hot flashes, take twice daily. atorvastatin 40 mg tablet 40 mg PO QHS MDD 40 mg Qty: 30 5RF cholecalciferol (vitamin D3) 1,250 mcg (50,000 unit) capsule 1,250 mcg PO QWEEK MDD 1250 mcg a week Qty: 4 5RF montelukast 10 mg tablet 10 mg PO QDAY 30 Days Qty: 30 3RF nystatin 100,000 unit/gram powder 1 applic topical BID Qty: 30 0RF trazodone 50 mg tablet 50 mg PO QHS 30 Days Qty: 30 2RF albuterol sulfate 90 mcg/actuation aerosol powdr breath activated 2 inh inhalation Q6H PRN (Reason: shortness of breath or wheezing) Qty: 1 3RF tirzepatide (weight loss) 2.5 mg/0.5 mL pen injector 2.5 mg subcut QWEEK MDD 2.5 mg Qty: 2 2RF Rx Instructions: for 4 weeks paroxetine HCl 30 mg tablet 30 mg PO QDAY 30 Days Qty: 30 3RF rizatriptan 10 mg tablet 10 mg PO .COMPLEX Qty: 30 5RF Rx Instructions: 10 mg orally as needed, at most three tablets per day Referrals: No Primary/Family,Physician [Primary Care Provider] - In 1 week Patient/Caregiver Discharge Instructions Print Language: Armenian
[2025-06-29 15:45] LABS: Basophils # (Auto) 0.1 Thou/mm3 (0.0-0.2); Basophils % (Auto) 1 % (0-2.5); Eosinophils # (Auto) 0.4 Thou/mm3 (0.0-0.5); Eosinophils % (Auto) 5 % (0-10); Hematocrit 50.0 % (36.0-46.0); Hemoglobin 16.9 g/dL (12.0-16.0); Immature Granulocytes Auto 0.03 Thou/mm3 (0.00-0.00); Lymphocytes # (Auto) 2.5 Thou/mm3 (1.0-4.8); Lymphocytes % (Auto) 31 % (10-50); Mean Corpuscular HGB Conc 33.8 g/dl (31.0-37.0); Mean Corpuscular Hemoglobin 31.3 pg (25.0-35.0); Mean Corpuscular Volume 93 fL (80-100); Monocytes # (Auto) 0.5 Thou/mm3 (0.0-0.8); Monocytes % (Auto) 7 % (0-12); Neutrophils # (Auto) 4.6 Thou/mm3 (1.8-7.7); Neutrophils % (Auto) 57 % (37-80); Nucleated Red Blood Cell # 0.00 Thou/mm3 (0.00-0.00); Nucleated Red Blood Cell % 0 /100 WBC (0); Platelet Count 307 Thou/mm3 (140-440); RDW Standard Deviation 46.7 fL (36.4-46.3); Red Blood Count 5.40 Miln/mm3 (4.00-5.20); White Blood Count 8.0 Thou/mm3 (3.6-11.0)
[2025-06-29] MEDS: LABETALOL INJ 5 MG/ML VIAL 20 ML IVP (15:48)
[2025-06-29 16:35] LABS: Collection Type, Urine Clean Catch; WBC,Urine 0 /hpf (0-5)
[2025-06-29 16:35] LABS: B-Type Natriuretic Peptide 73 pg/mL (0-100)
[2025-06-29 16:54] LABS: INR 1.0 (0.9-1.3); Partial Thromboplastin Time 24.5 Seconds (22.0-36.0); Prothrombin Time 10.9 Seconds (9.0-12.2)
[2025-06-29 17:02] LABS: Alanine Aminotransferase 11 U/L (10-49); Albumin, Serum 3.7 gm/dL (3.4-4.8); Albumin/Globulin Ratio 1.6 (1.2-2.2); Alkaline Phosphatase 64 U/L (46-116); Anion Gap 9 (7-16); Aspartate Amino Transferase 18 U/L (0-34); BUN/Creatinine Ratio 7 Ratio (12-20); Bilirubin,Total 0.5 mg/dL (0.3-1.2); Blood Urea Nitrogen 8 mg/dL (9-23); Calcium 9.7 mg/dL (8.3-10.6); Calcium (Corrected) 9.9 mg/dL (8.5-10.1); Carbon Dioxide 26.4 mMol/L (20.0-31.0); Chloride 109 mMol/L (98-107); Creatinine (Component) 1.1 mg/dL (0.6-1.3); Estimated Creatinine Clearance 54.2 mL/min (>60); Globulin 2.3 gm/dL (2.3-3.5); Glucose 103 mg/dL (74-106); LDH (Lactate Dehydrogenase) 177 U/L (120-246); Magnesium 1.8 mg/dL (1.6-2.6); Osmolality,Calculated 285 (275-295); Potassium 3.5 mMol/L (3.4-5.1); Sodium 144 mMol/L (136-145); Thyroid Stimulating Hormone 2.14 uIU/mL (0.55-4.78); Total Protein 6.0 gm/dL (5.7-8.2); Troponin I 0.037 ng/mL (0.0-0.045); eGFR 56 See Note
[2025-06-29 17:29] LABS: Bilirubin,Urine Negative (Negative); Blood,Urine Negative (Negative); Clarity,Urine Clear (Clear/Hazy); Color,Urine Colorless (Lt Yel-Yel); Culture Indicated,Urine Not Indicated; Glucose, Urine Negative (Negative); Ketones,Urine Negative (Negative); Leukocyte Esterase,Urine Negative (Negative); Nitrite,Urine Negative (Negative); PH,Urine 7.0 (5.0-7.0); Protein,Urine Negative (Neg - Trace); RBC,Urine 2 /hpf (0-3); Specific Gravity,Urine 1.005 (1.001-1.035); Squamous Epithelial Cell,Urine 3 /hpf (0-5); Urobilinogen,Urine Negative mg/dL (0.0-1.0)
[2025-06-29 17:37] LABS: T4 (Thyroxine) 7.9 mcg/dL (4.5-10.9)
[2025-06-29 17:39] LABS: Amphetamine/Methamp Scrn,U Negative (Negative); Barbiturate Screen,Urine Negative (Negative); Benzodiazepines Screen,Urine Negative (Negative); Benzoylecgonine Screen, Ur Negative (Negative); Fentanyl Screen,Urine Negative (Negative); Opiate Screen,Urine Negative (Negative); THC Screen,Urine Negative (Negative)
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
--- NOTE | 2025-06-29 19:29 | ECHO_ITS ---
Transthoracic Echo Report Ht (in): 64 Wt (lb): 190 Exam Location: [facility] Status: Inpatient Transportation Attendant: Andreia Hesnon Indications: Procedure Performed: BP: 137 / 98 HR: 66 MEASUREMENTS (Male / Female) Normal Values DOPPLER MV Area PHT 4.6 cm? Mitral E Point Velocity 64.0 cm/s Mitral A Point Velocity 56.3 cm/s Mitral E to A Ratio 1.1 LV E' Lateral Velocity 8.5 cm/s Mitral E to LV E' Lateral Ratio 7.5 LV E' Septal Velocity 7.4 cm/s Mitral E to LV E' Septal Ratio 8.6 TR Peak Velocity 233.0 cm/s TR Peak Gradient 21.7 mmHg FINDINGS Left Ventricle The left ventricle is not well visualized. Right Ventricle Mild dilated RV. Flattened septal wall due to RV pressure and volume overload. The estimated right ventricular systolic pressure, 30 mmHg with RAP 8 Left Atrium The left atrium is normal by two-dimensional, color flow and Doppler imaging with no structural abnormalities, no thrombus formation present. Right Atrium The right atrial cavity size is moderately increased. Atrial Septum The interatrial septum appears normal with no evidence of a shunt. Mitral Valve The mitral valve is normal by two-dimensional, color flow and Doppler interrogation. Aortic Valve The aortic valve is trileaflet and normal by two-dimensional, color flow and Doppler interrogation. There is no significant aortic valve regurgitation. Tricuspid Valve The tricuspid valve is normal by two-dimensional, color flow and Doppler interrogation. There is mild to moderate tricuspid valve regurgitation. Pulmonic Valve The pulmonic valve is not well visualized. There is no significant pulmonic valve regurgitation. Pericardium The pericardium is normal by two-dimensional imaging. There is no significant pericardial effusion. Other Findings Limited exam because nurse said Doctor canceled due to patient discharging. CONCLUSIONS Indication: R/o CHF The left ventricle is not well visualized. Estimated EF 50-55% Mild dilated RV. Flattened septal wall due to RV pressure and volume overload. The estimated right ventricular systolic pressure, 30 mmHg with RAP 8 Mild dilated RA. Mild TR and trace MR Limited exam because nurse said Doctor canceled due to patient discharging. Catalino Packer (Electronically Signed) Final Date: 01 July 2025 09:11
[2025-06-29] MEDS: Magnesium Sulfate 2 GM Ivpb 2 GM/50 ML BAG IV (19:52)
[2025-06-29] MEDS: RINGERS LACTATED 1000 ML 1,000 ML 85 ML IV (19:53)
[2025-06-29] MEDS: ATORVASTATIN CALCIUM 10 MG TABLET 40 MG PO (21:52)
--- NOTE | 2025-06-29 22:18 | PC.NURSE ---
Notified Dr. Giron-pt complaining of chest thightness
[2025-06-29] MEDS: MORPHINE SULF INJ 4 MG/ML VIAL 2 MG IVP (22:52)
[2025-06-29 23:57] LABS: Troponin I 0.088 ng/mL (0.0-0.045)
--- NOTE | 2025-06-30 00:19 | PC.NURSE ---
Pt requesting to leave ama, team at bedside speaking to patient
[2025-06-30] MEDS: DiphenhydrAMINE ELIX 25 MG/10 ML UDC 12.5 MG PO (00:22)
[2025-06-30 00:40] VITALS: BP 141/87; PULSE 73; RESP 17; O2SAT 96
[2025-06-30] MEDS: oxyCODONE HCL 5 MG IR TAB 10 MG PO ×3 (01:01→12:15)
[2025-06-30 04:00] VITALS: BP 118/71; PULSE 57; PULSE 60; RESP 17; TEMP 36.4; O2SAT 95
[2025-06-30 05:24] VITALS: BMI 34.7
[2025-06-30 06:09] LABS: Basophils # (Auto) 0.0 Thou/mm3 (0.0-0.2); Basophils % (Auto) 0 % (0-2.5); Eosinophils # (Auto) 0.0 Thou/mm3 (0.0-0.5); Eosinophils % (Auto) 0 % (0-10); Hematocrit 41.2 % (36.0-46.0); Hemoglobin 13.4 g/dL (12.0-16.0); Immature Granulocytes Auto 0.02 Thou/mm3 (0.00-0.00); Lymphocytes # (Auto) 0.8 Thou/mm3 (1.0-4.8); Lymphocytes % (Auto) 12 % (10-50); Mean Corpuscular HGB Conc 32.5 g/dl (31.0-37.0); Mean Corpuscular Hemoglobin 30.9 pg (25.0-35.0); Mean Corpuscular Volume 95 fL (80-100); Monocytes # (Auto) 0.2 Thou/mm3 (0.0-0.8); Monocytes % (Auto) 3 % (0-12); Neutrophils # (Auto) 5.4 Thou/mm3 (1.8-7.7); Neutrophils % (Auto) 84 % (37-80); Nucleated Red Blood Cell # 0.00 Thou/mm3 (0.00-0.00); Nucleated Red Blood Cell % 0 /100 WBC (0); Platelet Count 259 Thou/mm3 (140-440); RDW Standard Deviation 48.3 fL (36.4-46.3); Red Blood Count 4.33 Miln/mm3 (4.00-5.20); White Blood Count 6.4 Thou/mm3 (3.6-11.0)
[2025-06-30 06:36] LABS: Albumin, Serum 3.9 gm/dL (3.4-4.8); Anion Gap 10 (7-16); BUN/Creatinine Ratio 9 Ratio (12-20); Blood Urea Nitrogen 10 mg/dL (9-23); Calcium 9.9 mg/dL (8.3-10.6); Calcium (Corrected) 10.0 mg/dL (8.5-10.1); Carbon Dioxide 27.1 mMol/L (20.0-31.0); Cardiac Risk Estimate 2.9 RATIO (3.7-5.6); Chloride 107 mMol/L (98-107); Cholesterol 233 mg/dL (132-200); Creatinine (Component) 1.1 mg/dL (0.6-1.3); Estimated Creatinine Clearance 55.9 mL/min (>60); Glucose 158 mg/dL (74-106); HDL Cholesterol 81 mg/dL (40-60); LDL Cholesterol,Calculated 132 mg/dL (0-130); Magnesium 2.2 mg/dL (1.6-2.6); Osmolality,Calculated 288 (275-295); Phosphorous 2.8 mg/dL (2.4-5.1); Potassium 4.9 mMol/L (3.4-5.1); Sodium 144 mMol/L (136-145); Thyroid Stimulating Hormone 0.58 uIU/mL (0.55-4.78); Triglycerides 98 mg/dL (30-150); eGFR 56 See Note
--- NOTE | 2025-06-30 06:36 | PC.NURSE ---
called Dr. Art regarding patient c/o back pain 04/10, patient's pain is chronic and already takes oxycodone at home but frequency on EMAR is BID, per doctor will add x1 dose of tylenol.
[2025-06-30 06:38] LABS: Troponin I 0.071 ng/mL (0.0-0.045)
[2025-06-30 07:04] VITALS: PULSE 63; RESP 19; RESP 92
[2025-06-30 08:00] VITALS: BP 127/72; PULSE 63; PULSE 70; RESP 16; TEMP 36; O2SAT 94
--- NOTE | 2025-06-30 09:04 | PD.RESCONSUL ---
HPI Data of Consult Consult date: 06/30/25 Requesting Physician: Dwaine Andres MD Admitting Provider: Dwaine Andres MD Attending Provider: Dwaine Andres MD Primary Care Provider: Physician No Primary/Family Consult Narrative Reason for consult: BRIDGER History of present illness: History of Present Illness: 64y/o Female with PMH of asthma, GERD with Valencia's esophagus, breast cancer status post bilateral mastectomy, migraine headaches, insomnia, major depressive disorder, chronic neck and back pain s/p multiple spine surgeries presented to the hospital on 06/29/2025 due to papation and shortness of breath after multiple red ant bites. Patient has been gardening in her backyard, where she experienced multiple red ant bite on her upper and lower extremities. She started to have lightheadedness, palpitations, shortness of breath, and chest tightness for 2 hours and decided to come to the hospital. She also complained of 2-3 mm maculopapular rash on her upper and lower extremities from the ant bite. Alvin fever, or chills, or vomiiting. Patient has been admitted for management of SVT Nephrology has been consulted for management of CKD stage 3a. ED Course: At arrival, VSS T98.6, HR 225, RR 28, O2 98% on RA. Patient was given ice, and asked to bear down to which she did not respond. However when asked to blow through a syringe to implement Valsalva, patient responded. Patient went into SVT more than 5 times with heart rate up to 240s to 60s. Blood pressure stayed elevated more than 140 throughout, without changes in mentation. Patient was given methylprednisolone and famotidine for possible allergic reaction. Patient was not found to be in respiratory distress and so no epinephrine was given. As patient responded to Valsalva maneuver, no need for adenosine administration. Finally patient was given labetalol in which it maintain her heart rate in 70s with appropriate blood pressure. Labs without leukocytosis, hemoglobin 16.910 and metabolic panel WNL, troponin 0.037 and BNP not elevated. Thyroid studies unremarkable. Chest x-ray unremarkable Meds: Albuterol, colestipol, diphenhydramine, fexofenadine, montelukast, rizatriptan Allergy: Bacitracin, neomycin, polymyxin B, as well as allergies to red hands and bees. PMHx: Breast cancer status post bilateral mastectomy with reconstruction (05/2022) and radiation therapy (completed 10/2022), GERD with Valencia's esophagus, migraines headache, insomnia, major depressive disorder, chronic neck and lower back status post multiple spine surgeries PSHx: Bilateral mastectomy with reconstruction (05/2022). Multiple spine surgeries. Fam Hx: Significant for Valencia's esophagus in sister Soc Hx: Denies smoking or using tobacco products. Denies drinking alcohol. Denies using marijuana, or illicit drugs. 06/30/2025: Labs reviewed and patient examined at the bedside. On admission, BUN: 8, Cr:1.1, eGFR:56. During previous admissions patient consistently exhibited low eGFR ~50. Patient has CKD stage 3a and needs to follow up with a oracle application consultant after discharge for management of CKD. Patient currently has no other complaints. cc:: cc: Dwaine Andres MD Review of Systems Review of Systems Narrative Review of Systems: All 12 systems assessed and the patient denies unless otherwise stated in HPI Exam Vital Signs Temp Pulse Resp BP Pulse Ox O2 Del Method 96.8 F 63 16 127/72 94 L Room Air 06/30/25 08:00 06/30/25 08:00 06/30/25 08:00 06/30/25 08:00 06/30/25 08:00 06/30/25 08:00 Narrative Exam General: No acute distress, well nourished, AAO x3 Eye: PERRL, EOMI, normal conjunctiva, no scleral icterus HENT: Normocephalic, atraumatic, hearing intact to conversation at normal volume, moist oral mucosa Neck: Supple, non-tender, no JVD, no lymphadenopathy Lungs: Non-labored respirations, symmetric chest rise, Clear to auscultate bilaterally, No wheezing, rhonchi, crackles Heart: Peripheral pulses intact bilaterally, Regular Rate and Rhythm. Abdomen: Soft, non-tender, non-distended, no palpable masses Musculoskeletal: Normal range of motion and strength, No cyanosis or edema, No visible joint swelling, barely visible bite wilhelm in both upper and lowe LE. Skin: Skin is warm, dry, no rashes or lesions. Psychiatric: Cooperative, appropriate mood and affect, Awake and alert, not agitated Neuro: Cranial nerves II-XII grossly intact. Sensations intact to light touch. Results Labs 06/30/25 05:30 06/30/25 05:30 Labs: Short CBC 06/29/25 06/30/25 Range/Units 15:20 05:30 WBC 8.0 6.4 (3.6-11.0) Thou/mm3 Hgb 16.9 H 13.4 D (12.0-16.0) g/dL Hct 50.0 H 41.2 (36.0-46.0) % Plt Count 307 259 D (140-440) Thou/mm3 BMP 06/29/25 06/30/25 16:28 05:30 Sodium 144 144 Potassium 3.5 4.9 D Chloride 109 H 107 Carbon Dioxide 26.4 27.1 BUN 8 L 10 Creatinine 1.1 1.1 Glucose 103 158 H D Calcium 9.7 9.9 Cardiac Enzymes 06/29/25 06/29/25 06/30/25 Range/Units 16:28 22:54 05:30 Troponin I 0.037 0.088 H* 0.071 H* (0.0-0.045) ng/mL Liver Function 06/29/25 06/30/25 Range/Units 16:28 05:30 Total Bilirubin 0.5 (0.3-1.2) mg/dL AST 18 (0-34) U/L ALT 11 (10-49) U/L Alkaline Phosphatase 64 (46-116) U/L Albumin 3.7 3.9 (3.4-4.8) gm/dL Urine 06/29/25 Range/Units 16:20 Urine Color Colorless A (Lt Yel-Yel) Urine Clarity Clear (Clear/Hazy) Urine pH 7.0 (5.0-7.0) Ur Specific [place] 1.005 (1.001-1.035) Urine Protein Negative (Neg - Trace) Urine Glucose (UA) Negative (Negative) Impressions Impression: 64y/o Female with PMH of asthma, GERD with Valencia's esophagus, breast cancer status post bilateral mastectomy, migraine headaches, insomnia, major depressive disorder, chronic neck and back pain s/p multiple spine surgeries presented to the hospital on 06/29/2025 due to papation and shortness of breath after multiple red ant bites. Patient has been admitted for management of SVT. Nephrology has been consulted for management of CKD stage 3a. #CKD stage 3a -On admission, BUN: 8, Cr:1.1, eGFR:56. -Patient does not have diabetes (HbA1c of 5.7 on 05/27/2025), No hx of chronic HTN, No chronic NSAID use or hermal meds, No smoking or family history related to kidneys -UA (06/29/2025): Urine Blood: Negative, Urine protein: Negative, Urine Nitrite: Negative. -Past Renal US (10/18/2024): Right kidney 9.7 x 4.2 x 4.4 cm cortex 1.1 cm, Mild hydronephrosis, Left kidney 9.8 x 4.4 x 3.4 cm renal cortex 1.5 cm, Mild bilateral renal parenchymal scar formation, No bladder mass or bladder calculi, Bladder prevoid volume 43 cc -Past CTAP (02/28/2025): Mild right hydronephrosis, no ureteral calculi, consider urinary tract infection -All electrolyte levels are stable. -Patient has no clear etiology of CKD stage 3 Plan: -Need to follow up with Dr. Gomez, oracle application consultant after discharge. -Need to control BP <130/80. -Avoid nephrotoxins: NSAIDS, contrasts, PPIs. -Lifestyle modification; Healthy weight, low-salt diet (<2g /day Na) -Consider biopsy if rapid progression of GFR decline. #SVT #? Type 1 hypersensitivity reaction #History of asthma #Electrolyte Abnormalities #Valencia's esophagus #GERD #Migraine headaches #Major depressive disorder #History of breast cancer status post bilateral mastectomy #Chronic back pain status post multiple spine surgeries -Management per Primary Hospitalist team Thank you for allowing us to participate in the care of your patient. Assessment and plan discussed with my attending physician Dr. Patricia Hernandez (PGY-1)- Internal medicine resident Quality Measures Quality Measures none Advance care planning discussed with:: patient and other Medications Home Medications and Allergies Allergies Allergy/AdvReac Type Severity Reaction Status Date / Time bacitracin (From Allergy Intermediate Rash Verified 06/29/25 15:33 Polysporin(bacitracin base)) neomycin Allergy Intermediate Rash Verified 06/29/25 15:33 polymyxin B (From Allergy Intermediate Rash Verified 06/29/25 15:33 Polysporin(bacitracin base)) bee venom protein (honey bee) AdvReac Severe Anaphylaxis Verified 06/29/25 15:33 red ants AdvReac Severe Anaphylaxis Uncoded 06/29/25 15:33 Visit Medications Acetaminophen (Acetaminophen Supp 650 Mg Supp) 1,000 mg CO Q6HR PRN PRN Reason: Fever > 99.9 Stop: 07/29/25 19:27 Albuterol (Albuterol Inh 8 Gm) 2 puff INH Q6HRRT PRN PRN Reason: shortness of breath or wheezing Stop: 07/30/25 07:47 Atorvastatin Calcium (Atorvastatin Calcium 10 Mg Tablet) 40 mg PO HS FLAVIA Stop: 07/29/25 20:59 Last Admin: 06/29/25 21:52 Dose: 20 mg Diclofenac Sodium (Diclofenac 1% Top Gel 100 Gm Tube) 4 gm TOP Q6HR FLAVIA Stop: 07/30/25 07:44 Gabapentin (Gabapentin 300 Mg Capsule) 300 mg PO BID FLAVIA Stop: 07/29/25 20:59 Last Admin: 06/29/25 19:53 Dose: Not Given Methocarbamol (Methocarbamol 500 Mg Tablet) 750 mg PO TID PRN PRN Reason: muscle pain Stop: 07/30/25 00:02 Last Admin: 06/30/25 00:57 Dose: 750 mg Montelukast Sodium (Montelukast Sodium 10 Mg Tablet) 10 mg PO QDAY FLAVIA Stop: 07/30/25 08:59 Non-Formulary Medication (Rizatriptan) 10 mg PO .COMPLEX FLAVIA Stop: 07/30/25 07:59 Ondansetron HCl (Ondansetron Inj 2 Mg/Ml Inj 2 Ml) 4 mg IVP Q6HR PRN; Protocol PRN Reason: NAUSEA OR VOMITING Stop: 07/29/25 19:27 Oxycodone HCl (Oxycodone Hcl 5 Mg Ir Tab) 10 mg PO QID FLAVIA; Protocol Stop: 07/05/25 08:49 Paroxetine HCl (Paroxetine Hcl 10 Mg Tablet) 30 mg PO QDAY FLAVIA Stop: 07/30/25 08:59 Discontinued Medications Acetaminophen (Acetaminophen 325 Mg Tablet) 650 mg PO X1 ONE Stop: 06/30/25 06:37 Last Admin: 06/30/25 06:44 Dose: Not Given Adenosine (Adenosine Inj 3 Mg/Ml Vial) 6 mg IVP X1 ONE Stop: 06/29/25 15:21 Last Admin: 06/29/25 17:52 Dose: Not Given Diphenhydramine HCl (Diphenhydramine Inj 50 Mg/Ml Vial) 50 mg IVP X1 ONE Stop: 06/29/25 15:13 Last Admin: 06/29/25 15:29 Dose: Not Given Diphenhydramine HCl (Diphenhydramine Elix 25 Mg/10 Ml Udc) 12.5 mg PO X1 ONE Stop: 06/30/25 00:01 Last Admin: 06/30/25 00:22 Dose: 12.5 mg Famotidine (Famotidine Inj 10 Mg/Ml Vial 2 Ml) 40 mg IVP X1 ONE Stop: 06/29/25 15:13 Last Admin: 06/29/25 15:25 Dose: 40 mg Lactated Ringer's (Lactated Ringers) 1,000 mls @ 999 mls/hr IV .Q1H1M ONE Stop: 06/29/25 16:12 Last Infusion: 06/29/25 17:51 Dose: Infused Magnesium Sulfate (Magnesium Sulfate Ivpb) 2 gm in 50 mls @ 25 mls/hr IV X1 ONE Stop: 06/29/25 21:30 Last Infusion: 06/29/25 22:47 Dose: Infused Lactated Ringer's (Lactated Ringers) 1,000 mls @ 85 mls/hr IV .[id number] ONE Stop: 06/30/25 07:17 Last Admin: 06/29/25 19:53 Dose: 85 mls/hr Labetalol HCl (Labetalol Inj 5 Mg/Ml Vial 20 Ml) 10 mg IVP X1 ONE Stop: 06/29/25 15:30 Last Admin: 06/29/25 17:52 Dose: Not Given Labetalol HCl (Labetalol Inj 5 Mg/Ml Vial 20 Ml) 5 mg IVP X1 ONE Stop: 06/29/25 15:47 Last Admin: 06/29/25 15:48 Dose: 5 mg Lorazepam (Lorazepam 0.5 Mg Tablet) 0.5 mg PO X1 ONE Stop: 06/29/25 15:29 Last Admin: 06/29/25 15:44 Dose: 0.5 mg Melatonin (Melatonin 3 Mg Tablet) 6 mg PO X1 ONE Stop: 06/30/25 04:20 Last Admin: 06/30/25 05:44 Dose: Not Given Methylprednisolone Sodium Succinate (Methylprednisolone Sod Succ 62.5 Mg/Ml 2ml Vial) 125 mg IVP X1 ONE Stop: 06/29/25 15:13 Last Admin: 06/29/25 15:25 Dose: 125 mg Morphine Sulfate (Morphine Sulf Inj 4 Mg/Ml Vial) 2 mg IVP X1 ONE Stop: 06/29/25 22:21 Last Admin: 06/29/25 22:52 Dose: 2 mg Ondansetron HCl (Ondansetron Inj 2 Mg/Ml Inj 2 Ml) 4 mg IVP Q6H PRN; Protocol PRN Reason: NAUSEA OR VOMITING Stop: 07/29/25 19:27 Oxycodone HCl (Oxycodone Hcl 5 Mg Ir Tab) 10 mg PO BID FLAVIA Stop: 07/05/25 00:39 Last Admin: 06/30/25 01:19 Dose: Not Given Oxycodone HCl (Oxycodone Hcl 5 Mg Ir Tab) 10 mg PO BID PRN PRN Reason: Back pain Stop: 07/05/25 00:39 Last Admin: 06/30/25 01:01 Dose: 10 mg Oxycodone HCl (Oxycodone Hcl 5 Mg Ir Tab) 10 mg PO QID FLAVIA; Protocol Stop: 07/05/25 11:59 Potassium Chloride (Potassium Chloride 20 Meq Tabcr) 40 meq PO X1 ONE Stop: 06/29/25 19:32 Last Admin: 06/29/25 19:52 Dose: 40 meq Assessment & Plan Attending Provider Attestation/Addendum Patient seen and examined with resident physician Dr. Hernandez. Note reviewed, agree with findings and recommendations. Patient seems to have BRIDGER secondary to prerenal azotemia. 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 Recommended to follow-up with me in the outpatient setting for further workup. Thank you Dwaine for allowing me to participate in the care of Ms. Cordoba.
[2025-06-30] MEDS: MONTELUKAST SODIUM 10 MG TABLET PO (09:10)
[2025-06-30] MEDS: DICLOFENAC 1% TOP GEL 100 GM TUBE TOP ×2 (09:10→12:16)
[2025-06-30 10:09] VITALS: BMI 34.5
[2025-06-30] MEDS: RIZATRIPTAN 10 MG TABLET PO (11:09)
--- NOTE | 2025-06-30 11:41 | PC.SS ---
SS spoke to patient who is alert/oriented. Patient was able to verify demographics. Patient resides with her . Patient is independent with ADL's. No DmE. Patient admitted for SVT. Patient follows at the [facility]. Last appt. was 1-2 weeks ago. Last Geology Instructor seen was Dr. Packer. [facility]. Discharge plan is to return home. No d/c needs. Alt medical decision maker: , Rafael, Discharge plan is to return home.
[2025-06-30 12:00] VITALS: BP 137/98; PULSE 75; PULSE 81; RESP 12; TEMP 36.1; O2SAT 95
--- NOTE | 2025-06-30 13:05 | ESCONSULT_ITS ---
HPI Data of Consult Requesting Physician: Dwaine Andres MD Primary Care Provider: Physician No Primary/Family Consult Narrative History of present illness: This is a 64-year-old female With medical history notable for asthma, GERD with Valencia's esophagus, breast cancer status post bilateral mastectomy, migraine headaches, insomnia, major depressive disorder, chronic neck and back pain s/p multiple spine surgeries Patient is in the emergency room with heart palpitation lightheadedness dizziness shortness of breath atypical chest pain In the emergency room patient was noted to be tachycardic heart rate reportedly more than 200 Patient reportedly responded to Valsalva maneuver and converted to sinus rhythm Currently patient is maintaining sinus rhythm EKG done showing SVT is not available cc:: cc: Dwaine Andres MD Meds Home Medications and Allergies Allergies Allergy/AdvReac Type Severity Reaction Status Date / Time bacitracin (From Allergy Intermediate Rash Verified 06/29/25 15:33 Polysporin(bacitracin base)) neomycin Allergy Intermediate Rash Verified 06/29/25 15:33 polymyxin B (From Allergy Intermediate Rash Verified 06/29/25 15:33 Polysporin(bacitracin base)) bee venom protein (honey bee) AdvReac Severe Anaphylaxis Verified 06/29/25 15:33 red ants AdvReac Severe Anaphylaxis Uncoded 06/29/25 15:33 Exam Vital Signs Temp Pulse Resp BP Pulse Ox O2 Del Method 96.9 F 75 12 137/98 H 95 Room Air 06/30/25 12:00 06/30/25 12:00 06/30/25 12:00 06/30/25 12:00 06/30/25 12:00 06/30/25 12:00 Results Labs 06/30/25 05:30 06/30/25 05:30 Labs: Short CBC 06/29/25 06/30/25 Range/Units 15:20 05:30 WBC 8.0 6.4 (3.6-11.0) Thou/mm3 Hgb 16.9 H 13.4 D (12.0-16.0) g/dL Hct 50.0 H 41.2 (36.0-46.0) % Plt Count 307 259 D (140-440) Thou/mm3 BMP 06/29/25 06/30/25 16:28 05:30 Sodium 144 144 Potassium 3.5 4.9 D Chloride 109 H 107 Carbon Dioxide 26.4 27.1 BUN 8 L 10 Creatinine 1.1 1.1 Glucose 103 158 H D Calcium 9.7 9.9 Cardiac Enzymes 06/29/25 06/29/25 06/30/25 Range/Units 16:28 22:54 05:30 Troponin I 0.037 0.088 H* 0.071 H* (0.0-0.045) ng/mL Liver Function 06/29/25 06/30/25 Range/Units 16:28 05:30 Total Bilirubin 0.5 (0.3-1.2) mg/dL AST 18 (0-34) U/L ALT 11 (10-49) U/L Alkaline Phosphatase 64 (46-116) U/L Albumin 3.7 3.9 (3.4-4.8) gm/dL Urine 06/29/25 Range/Units 16:20 Urine Color Colorless A (Lt Yel-Yel) Urine Clarity Clear (Clear/Hazy) Urine pH 7.0 (5.0-7.0) Ur Specific [place] 1.005 (1.001-1.035) Urine Protein Negative (Neg - Trace) Urine Glucose (UA) Negative (Negative) Assessment and Plan Assessment and plan (1) Tachycardia: Status: Acute (2) Allergic reaction: Status: Acute Additional Assessment & Plan Additional Plan: Patient is in sinus rhythm hemodynamically stable no symptoms reported Patient stable for outpatient cardiac management
--- NOTE | 2025-06-30 13:40 | ESDS_ITS ---
<Statement entered by Dae Marie MD - 06/30/25 15:01> Note reviewed and agree with care plan as documented. Please refer to the note below for further details. Plan discussed with attending physician Dr. Dmitry Marie MD PGY-2 Internal Medicine Planned Discharge Date 06/30/25 DS: Providers Provider Date of admission: 06/29/25 19:55 Primary care physician: Physician No Primary/Family Admitting Provider: Dwaine Andres MD Attending Provider on Admission: Dwaine Andres MD Consults: 06/29/25 19:30 Consult to Cardiology Routine Comment: SVT Consulting Provider: Jorge Packer Referral Physical Therapy Routine Comment: Physician Instructions: 06/30/25 03:06 Referral Physical Therapy Routine Comment: Physician Instructions: Referral Registered Dietitian Routine Comment: Referral Respiratory Therapy Routine Comment: Referral Speech Therapy Routine Comment: 06/30/25 08:50 Consult to Nephrology Routine Comment: Patient with CKD stage 3 Consulting Provider: Severiano Gomez Attending Provider on DC: Dwaine Andres MD Discharging Provider: Nando Agarwal DO DS: Diagnosis Problem List Completed Was Problem List Reviewed/Reconciled?: Yes Hospital Course Hospital Course Hospital course: Julianna Cordoba is a 64-year-old female With medical history notable for asthma, ISABELLA D with Valencia's esophagus, breast cancer status post bilateral mastectomy, migraine headaches, insomnia, major depressive disorder, chronic neck and back pain s/p multiple spine surgeries who presented to the ED on 06/29 after feeling lightheaded, palpitations, short of breath, chest tightness after being bitten by fire ants. At arrival, VSS T98.6, HR 225, RR 28, O2 98%. She was asked to blow through a syringe to implement Valsalva, and heart rate improved. Patient went into SVT more than 5 times with heart rate up to 240s to 60s. Blood pressure stayed elevated more than 140 throughout, without changes in mentation. On physical exam, patient had diffuse maculopapular rash of isolated 2-3mm wide well demarcated lesion spread over lower extremities at the sites of ant bites. Patient was also given labetalol after which her heart rate stayed in 70s and blood pressure normalized. Although less likely to be a case of allergic response, patient was given methylprednisolone, famotidine diphenhydramine. Chest x-ray and thyroid studies unremarkable. Troponin and BNP WNL. Patient was watched closely. Etiologies include toxin or type one hypersensitivity reaction. By the next day, HR stayed within the range of 57-86 with no recurrence of tachycardia. Blood pressure stable. Cardiology Dr Packer was consulted who recommended outpatient follow up. At the time of discharge, patient is medically stable and deemed safe to return to his/her previous state of living. Admission Diagnoses: # SVT #Type I hypersensitivity reaction #History of asthma #Electrolyte abnormalities #Valencia's esophagus #GERD #Migraine headaches #Major depressive disorder #History of breast cancer status post bilateral mastectomy #Chronic back pain status post multiple spine surgeries Discharge instructions: * Follow-up with PCP within 1-2 weeks of discharge. * You may follow-up with one of our residents doctor with the [facility] at the address below. 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 Griggs within 1 to 2 weeks of discharge to seek his consultation but also to complete an ultrasound doppler echocardiogram for your heart for the preesnce of any structural or functional abnormalities in your heart. * Follow-up with your plumber assistant Dr. Gomez as your kidney filtration is in stage 3 chronic kideny disease level and seek her recommendation regarding your kidney health. * Continue taking medications as prescribed below. No changes were made to your medication regiment. * Return to Emergency Room if symptoms persist, worsen, or new symptoms develop. [facility] [address] [place] [address] This case was discussed with my attending physician, Dr. Andres, and senior resident, Dr Cynthia Cortez. Nando Agarwal, DO PGY I Status at Discharge Cognitive/behavioral status at discharge: stable Functional status at discharge: independent ambulation Overall status at discharge: patient is back to baseline Time Spent with Patient Time attestation: Total time spent providing and/or coordinating discharge services: 34 min Time spent: Greater than 30 minutes Exam Vital Signs Temp Pulse Resp BP Pulse Ox O2 Del Method 96.9 F 75 12 137/98 H 95 Room Air 06/30/25 12:00 06/30/25 12:06/30/25 12:06/30/25 12:00 06/30/25 12:00 06/30/25 12:00 Narrative Exam General: Alert and oriented x3, No apparent distress. Skin: Intact, Warm, Diffuse maculopapular rash of 2-3mm circular well demarcated lesions spread over BUE and BLE. HEENT: Normocephalic, Atraumatic. Normal neck range of motion, Supple. Trachea midline. Respiratory: Lungs are clear to auscultation, Breath sounds are equal bilaterally with equal chest expansion. Cardiovascular: RRR, normal S1, S2, No murmurs. Distal pulses 2+ Abdomen: Abdomen non-distended, without erythema, or lesions. Normotensive bowel sounds x4. Percussion tympanic. Palpation soft, nontender in all four quadrants. No organomagely. Absent rigidity, guarding, or rebound. Musculoskeletal/Extremities: No erythema, swelling, tenderness of any joints. No edema of BLE. DP pulses +2/3 b/l. Full active ROM of all four extremities. Neurologic: NEURO: Oriented x3, cranial nerves II to XII grossly intact. Muscle strength 5/5 on UE and LE b/l, Moves extremities x4. Sensation intact to gross touch along C6-T1 and L2-S1 dermatomes. No focal neurologic deficits noted Psych: Thoughts linear and responses appropriate. Discharge Plan Plan Patient Disposition: HOME (Self Care) Patient condition on transfer: Stable Care Plan Goals: * Follow-up with PCP within 1-2 weeks of discharge. * You may follow-up with one of our residents doctor with the [facility] at the address below. 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 Griggs within 1 to 2 weeks of discharge to seek his consultation but also to complete an ultrasound doppler echocardiogram for your heart for the preesnce of any structural or functional abnormalities in your heart. * Follow-up with your plumber assistant Dr. Gomez as your kidney filtration is in stage 3 chronic kideny disease level and seek her recommendation regarding your kidney health. * Continue taking medications as prescribed below. No changes were made to your medication regiment. * Return to Emergency Room if symptoms persist, worsen, or new symptoms develop. [facility] [address] [place] [address] Prescriptions/Referrals Prescriptions/Med Rec: Continued (DME) BreatheRite Valved MDI Chamber Spacer See Rx Instructions .Route Qty: 1 0RF Rx Instructions: As directed naloxone [Narcan] 4 mg/actuation spray,non-aerosol 4 mg intranasal Q2M PRN (Reason: opioid overdose) Qty: 2 0RF Patient Comments: has not used it but does have access to medication Rx Instructions: spray 1 dose into ONE nostril; alternate nostrils w each dose fexofenadine 180 mg tablet 180 mg PO QDAY MDD 180 mg Qty: 30 5RF triamcinolone acetonide 0.5 % cream 1 applic topical BID Qty: 15 0RF methocarbamol 750 mg tablet 750 mg PO TID PRN (Reason: muscle pain) 30 Days Qty: 90 2RF oxycodone 10 mg tablet 10 mg PO QID MDD 4 PRN (Reason: pain) Qty: 120 0RF diclofenac sodium [Arthritis Pain (diclofenac)] 1 % gel 4 g topical QID Qty: 3 3RF Rx Instructions: apply to single knee, ankle, foot; for foot includes sole/toes/top of foot ondansetron HCl 4 mg tablet 4 mg PO Q8H PRN (Reason: nausea and vomiting) Qty: 90 1RF atorvastatin 40 mg tablet 40 mg PO QHS MDD 40 mg Qty: 30 5RF Patient Comments: Per patient only takes 20mg cholecalciferol (vitamin D3) 1,250 mcg (50,000 unit) capsule 1,250 mcg PO QWEEK MDD 1250 mcg a week Qty: 4 5RF montelukast 10 mg tablet 10 mg PO QDAY 30 Days Qty: 30 3RF nystatin 100,000 unit/gram powder 1 applic topical BID Qty: 30 0RF trazodone 50 mg tablet 50 mg PO QHS 30 Days Qty: 30 2RF albuterol sulfate 90 mcg/actuation aerosol powdr breath activated 2 inh inhalation Q6H PRN (Reason: shortness of breath or wheezing) Qty: 1 3RF paroxetine HCl 30 mg tablet 30 mg PO QDAY 30 Days Qty: 30 3RF rizatriptan 10 mg tablet 10 mg PO .COMPLEX Qty: 30 5RF Rx Instructions: 10 mg orally as needed, at most three tablets per day Discontinued scopolamine base 1 mg over 3 days patch 3 day 1 patch transdermal Q3D Qty: 4 0RF promethazine 25 mg tablet 25 mg PO TID PRN (Reason: nausea and vomiting) Qty: 7 0RF Rx Instructions: to take instead of zofran tolterodine 4 mg capsule,extended release 24hr 4 mg PO QDAY 30 Days Qty: 30 3RF tirzepatide (weight loss) 2.5 mg/0.5 mL pen injector 2.5 mg subcut QWEEK MDD 2.5 mg Qty: 2 2RF Rx Instructions: for 4 weeks Referrals: No Primary/Family,Physician [Primary Care Provider] Patient/Caregiver Discharge Instructions Education Materials: Anaphylactic Shock Dc, Understanding Tachycardia Print Language: Indonesian Stand Alone Forms: [employer] Award Info., Patient Portal Info Letter, Work/Release Restrictions Discharge Order Discharge Orders: Discharge (Routine); Ordered 06/30/25 Ordered By: Dae Marie Quality Discharge Quality Measures VTE prophylaxis Attestestation MD Attestation I attest that I was physically present for the evaluation, physical examination, lab and imaging review of the patient with the residents. I discussed the case with the residents and agree with the findings and plans of care as documented above. Patient seen and examined at bedside this morning. Appears comfortable and denies any new complaints. More episodes of palpitation or SVT. Discussed with outpatient follow-up for further cardiology workup. Vitals are stable saturating well on room air. Lab results are stable as well, troponin has down trended. Patient noted to have low GFR throughout her hospital course for couple years, consulted nephrology, appreciate recommendations. Patient deemed stable for discharge on her home medications recommended to follow-up with PCP, cardiology and nephrology in 1 to 2 weeks of discharge. Explained in detail about patient's condition and plan, patient source understanding and agreement. Dwaine Andres MD
--- NOTE | 2025-06-30 14:35 | PC.PT ---
PT eval only. Patient is I with transfers and ambulation without AD.
[2025-06-30 15:00] VITALS: BP 136/96; PULSE 72; RESP 18; TEMP 36.5; O2SAT 94
== END 2025-06-30 14:56 | disposition home or self-care (01) ==
LOC: SERX 18:16 → SERHOLD 20:28 → S2NX 06-30 13:14 → SERHOLD 07-01 08:38
PROVIDERS: Registered Nurse General Practice; Student in an Organized Health Care Education/Training Program; Admitting Provider Student in an Organized Health Care Education/Training Program; Emergency Provider Emergency Medicine; Visit Provider Student in an Organized Health Care Education/Training Program
DX: I47.10 Supraventricular tachycardia, unspecified (principal); J45.909 Unspecified asthma, uncomplicated; E87.8 Other disorders of electrolyte and fluid balance, not elsewhere classified; K22.70 Barrett's esophagus without dysplasia; K21.9 Gastro-esophageal reflux disease without esophagitis; F32.9 Major depressive disorder, single episode, unspecified; G43.909 Migraine, unspecified, not intractable, without status migrainosus; Z85.3 Personal history of malignant neoplasm of breast; Z90.13 Acquired absence of bilateral breasts and nipples; T78.40XA Allergy, unspecified, initial encounter
CPT/HCPCS: 36415; 71045; 80053; 80061; 80069; 80307; 81001; 82140; 83615; 83735; 83880; 84436; 84443; 84484; 85025; 85610; 85730; 92610; 93005; 93306; 96361; 96365; 96366; 96374; 96375; 97161; 99284; A4649; G0378; J2270; J2919; J3475; J3490; J7120; A9270; J1920

== ENCOUNTER 2025-07-04 13:11 | Outpatient (AMB) | payer MEDICARE, MEDICAID, SELFPAY ==
--- NOTE | 2025-07-04 13:18 | ACNOTE_ITS ---
<Statement entered by Valerio Slade MD - 07/04/25 15:25> Attending note: I, Valerio Slade MD, attest that I was physically present for the kunz portions of the service and evaluated the patient with the resident and I reviewed and discussed the case with the resident and agree with the resident's findings and plans of care as documented above. Vital Signs 07/04/25 13:19 Height 1.63 m Height Method Stated Weight 86.636 kg Weight Measurement Method Standing Scale BMI 32.5 BP 108/74 Blood Pressure Source Automatic Cuff Blood Pressure Location Right Upper Arm Position Sitting Respiration 83 H Pulse 17 L Pulse Source Monitor Temp 98.1 F Temp Source Oral Pulse Oximetry (%) 96 Oxygen Delivery Method Room Air Allergies/Meds Allergies & Medications Allergies bacitracin (From Polysporin(bacitracin base)) Allergy (Intermediate, Verified 07/04/25 13:19) Rash neomycin Allergy (Intermediate, Verified 07/04/25 13:19) Rash polymyxin B (From Polysporin(bacitracin base)) Allergy (Intermediate, Verified 07/04/25 13:19) Rash bee venom protein (honey bee) Adverse Reaction (Severe, Verified 07/04/25 13:19) Anaphylaxis red ants Adverse Reaction (Severe, Uncoded 07/04/25 13:19) Anaphylaxis Medication Reconciliation inhalational spacing device (BreatheRite Valved MDI Chamber spacer) #1 ea 01/13/24 [Rx Confirmed 07/04/25] naloxone 4 mg/actuation nasal spray (Narcan) 4 mg intranasal Q2M PRN opioid overdose #2 ea 04/03/24 [Rx Confirmed 07/04/25] fexofenadine 180 mg tablet 180 mg PO QDAY #30 tabs 08/16/24 [Rx Confirmed 07/04/25] montelukast 10 mg tablet 10 mg PO QDAY 30 days #30 tabs 10/23/24 [Rx Confirmed 07/04/25] nystatin 100,000 unit/gram topical powder 1 applic topical BID #30 grams 10/23/24 [Rx Confirmed 07/04/25] trazodone 50 mg tablet 50 mg PO QHS 30 days #30 tabs 10/23/24 [Rx Confirmed 07/04/25] albuterol sulfate 90 mcg/actuation breath activated powder inhaler 2 inh inhalation Q6H PRN shortness of breath or wheezing #1 ea 10/24/24 [Rx Confirmed 07/04/25] paroxetine HCl 30 mg tablet 30 mg PO QDAY 30 days #30 tabs 04/10/25 [Rx Confirmed 07/04/25] rizatriptan 10 mg tablet 10 mg PO .COMPLEX #30 tabs 04/10/25 [Rx Confirmed 07/04/25] diclofenac sodium 1 % topical gel (Arthritis Pain (diclofenac)) 4 g topical QID #3 tubes 06/06/25 [Rx Confirmed 07/04/25] ondansetron HCl 4 mg tablet 4 mg PO Q8H PRN nausea and vomiting #90 tabs [Rx Confirmed 07/04/25] atorvastatin 20 mg tablet (Lipitor) 20 mg PO QDAY #20 tabs 07/04/25 [Rx] epinephrine 0.3 mg/0.3 mL injection, auto-injector (EpiPen) 0.3 mg (0.3 mL) IM Q5-15M PRN anaphylaxis #1 ea 07/04/25 [Rx] methocarbamol 750 mg tablet 750 mg PO TID PRN muscle pain 30 days #90 tabs 07/04/25 [Rx] oxycodone 10 mg tablet 10 mg PO TID PRN pain #90 tabs 07/04/25 [Rx] triamcinolone acetonide 0.5 % topical cream 1 applic topical BID #15 grams 07/04/25 [Rx] MA Intake Visit Data Collection New Patient or Established: Established Patient (seen at [facility] within 3 years) Seen by Clinical Staff ONLY (RN/MA): No Pain Present Currently: Yes Pain Location: Back and Neck Pain scale:: 6 Pain Scale Used: Waterman-Harrison/Numerical PCP or OBGYN visit in last 3 months: Yes Do You Feel Safe at Home: Yes Authorities Contacted: N/A Smoking Status Smoking Status: Never smoker Immunization / Flu Flu Vaccine in the Last 12 Months: No Flu Vaccine Exclusion Criteria: No Exclusion Criteria Past Medical History Past Medical History NEUROLOGIC: Positive Migraine and Spinal Cord Injury CARDIAC: Negative Hypercholesterolemia, Congestive Heart Failure or Hypertension RESPIRATORY: Positive Asthma; Negative Chronic Obstructive Pulmonary Disease (COPD) GASTROINTESTINAL: Positive Gall Bladder Disease, Gastrointestinal Bleed and Diverticulitis GENITOURINARY: Positive Genitourinary Disorders; Negative Renal Disease REPRODUCTIVE: Positive Breast Cancer, Endometriosis and Uterine Prolapse MUSCULOSKELETAL: Positive Arthritis and Fractures ENT: Positive Ear Infection ENDOCRINE: Negative Diabetes Mellitus Type 1 or Diabetes Mellitus Type 2 PSYCHO/SOCIAL: Positive Anxiety OTHER HISTORY: Positive Radiation Therapy, Chicken Pox, Measles and Breast Cancer; Negative Chemotherapy Surgical History SURGICAL: Positive Ear Surgery, Eye Surgery, Abdominal Surgery, Gastric Bypass Surgery, Neurologic Surgery, Mastectomy (jace.) and Hysterectomy Social History SMOKING STATUS: Smoking status: Never smoker SECOND HAND EXPOSURE: second hand exposure: No ALCOHOL: Alcohol Intake: Never HOUSING: Housing: House LIVES WITH: Lives With: Spouse Patient Portal Questionaires PHQ-9 PHQ-2 Over the last 2 weeks, how often have you been bothered by any of the following problems? 1. Little interest or pleasure in doing things: not at all PHQ-9 8. Moving or speaking so slowly that other people could have noticed? - Or the opposite - being so fidgety or restless that you have been moving around a lot more than usual: not at all Source: Developed by Drs. Axel Doherty, Alessandra Goodson, Mickey Nichols and colleagues, with an educational paulette from [employer]. Social History Living Situation History Lives With: Family Housing: House Housing Other:: Lives at home with spouse Rafael Cordoba. Tobacco History Smoking Status: Never smoker Second Hand Smoke Exposure: No Alcohol History Alcohol Intake: Never Domestic Abuse History Do You Feel Safe at Home: Yes Review of Systems Report any current symptoms Only answer those that you have currently: Past Medical History Past Medical History Have you ever been diagnosed with any of the following: Neurological Problems Migraine: Yes Spinal Cord Injury: Yes Cardiology Problems Hypercholesterolemia: No Congestive Heart Failure: No Hypertension: No Respiratory Problems Chronic Obstructive Pulmonary Disease (COPD): No Asthma: Yes Stomache/Intestinal Problems Gall Bladder Disease: Yes Gastrointestinal Bleed: Yes Diverticulitis: Yes Genital/Urinary Problems Renal Disease: No Reproductive Problems Breast Cancer: Yes Endometriosis: Yes Uterine Prolapse: Yes Musculoskeletal Problems Arthritis: Yes Fractures: Yes Head,Eye,Nose,Throat Problems Chronic Ear Infections: Yes Endocrine Problems Diabetes Mellitus Type 1: No Diabetes Mellitus Type 2: No Psychologic Problems Anxiety: Yes Other Problems Chemotherapy: No Radiation Therapy: Yes Chicken Pox: Yes Measles: Yes Surgical History Hysterectomy: Yes History of Present Illness HPI Rubén Cordoba is a 64-year-old female with a history of asthma, GERD with Valencia's esophagus, breast cancer status post bilateral mastectomy, migraines, insomnia, chronic neck and back pain s/p multiple spine surgeries who is seen in the [facility] after being discharged from the hospital on 06/30 after being bitten by ants and having a heart rate in the 200s that was seen on EKG. No complications occurred during hospitalization and heart rate resolved on its own. Cardiology was consulted and given that chief complaint had self-resolved, no medications or interventions were needed. Additionally, nephrology was consulted and recommended outpatient follow-up. At this time, she has no complaints other than fatigue. Reviewed labs from hospitalization and all other than kidney function were within normal limits. Suspect episode of tachycardia and hospitalization to be etiology and will observe until follow-up visit. Will order epinephrine pen for prophylaxis, triamcinolone cream for residual itching at bite sites, nephrology referral placed, and renal function panel ordered prior to next follow-up after holding diclofenac cream. Sent refill for oxycodone and will try to decrease dose as it is prescribed for 10 mg QID as needed but states she only takes at most two pills per day so will change it to TID for now and see how she tolerates. Review of Systems Review of Systems Systems Reviewed: All systems reviewed, normal except as documented Objective/Exam Narrative Physical exam: General: AOx3, no acute distress, able to speak full sentences HEENT: NC/AT, mucous membranes moist, bilateral sclera anicteric Cardiovascular: regular rate and rhythm, S1/S2 present, no murmurs appreciated Pulmonary: clear to auscultation bilaterally, no rales/rhonchi/wheezes Abdominal: soft, non-tender, non-distended, no rebound/guarding, normal bowel sounds present Musculoskeletal: normal ROM, no peripheral edema Skin: warm and dry, intact, no rashes Neuro: CN II-XII intact, no focal deficits Assessment & Plan Diagnosis / Problem List (1) Allergic reaction: Status: Acute Qualifiers: Encounter type: subsequent encounter Qualified Code(s): T78.40XD - Allergy, unspecified, subsequent encounter Plan: - Epinephrine pen for prophylaxis - Triamcinolone cream 0.5% BID for two weeks (2) Chronic lower back pain: Status: Acute Qualifiers: Back pain laterality: bilateral Sciatica presence: unspecified whether sciatica present Qualified Code(s): M54.50 - Low back pain, unspecified; G89.29 - Other chronic pain Plan: - Oxycodone 10 mg TID as needed - Methocarbamol 750 mg TID as needed (3) Chronic kidney disease: Status: Chronic Qualifiers: Chronic kidney disease stage: stage 3 (moderate) Chronic kidney disease stage 3 subtype: stage 3a (GFR 45-59) Qualified Code(s): N18.31 - Chronic kidney disease, stage 3a Plan: - Obtain renal panel one week prior to next visit (08/13) - Nephrology referral placed Orders: Orders Renal Function Panel Today Referrals Nephrology N18.9 - Chronic kidney disease, unspecified Advanced Care Planning Advance care planning discussed with:: patient and spouse Office Procedures [facility] Level of Care Nursing/Assessment Patient Status: Established Patient Nursing Assessment/Reassessment: Medication Reconciliation, Update PMH in EMR and Vital Signs Coordination of Care: Complex Care and Chronic Disease 1-5, Education Complex Pt/Fam, Results/Orders obtained and Staff clarify orders Established Patient Charge Established Patient Point Assignment: 90 Established Patient Point Charge: EP Level 3 (80-115)
[2025-07-04 13:19] VITALS: BP 108/74; PULSE 17; RESP 83; TEMP 36.7; O2SAT 96; BMI 32.5
== END 2025-07-04 13:53 | disposition home or self-care (01) ==
LOC: HODAHC 13:11
PROVIDERS: Supervising Provider Internal Medicine; Visit Provider Internal Medicine
DX: M54.50 Low back pain, unspecified (principal); T78.40XA Allergy, unspecified, initial encounter; X58.XXXA Exposure to other specified factors, initial encounter; G89.29 Other chronic pain; N18.31 Chronic kidney disease, stage 3a
CPT/HCPCS: 99213; G0463

== ENCOUNTER 2025-09-03 13:34 | Outpatient (AMB) | payer MEDICARE, MEDICAID, SELFPAY ==
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
[2025-09-03 13:44] VITALS: BP 145/87; PULSE 77; RESP 16; TEMP 36.3; O2SAT 91; BMI 33.2
== END 2025-09-03 16:06 | disposition home or self-care (01) ==
LOC: HODAHC 13:34
PROVIDERS: Supervising Provider Internal Medicine
DX: S99.911A Unspecified injury of right ankle, initial encounter (principal); W22.8XXA Striking against or struck by other objects, initial encounter; M54.50 Low back pain, unspecified; G43.E09 Chronic migraine with aura, not intractable, without status migrainosus
CPT/HCPCS: 99214; G0463

== ENCOUNTER 2025-09-03 17:48 | Emergency (ER) | payer MEDICARE, MEDICAID, SELFPAY ==
[2025-09-03 19:23] VITALS: BP 154/87; PULSE 76; RESP 18; TEMP 36.9; O2SAT 97
--- NOTE | 2025-09-03 19:28 | EDNOTE_ITS ---
Lower Extremity Injury RME/HPI General Chief Complaint: Extremity Injury, Lower Stated Complaint: INJURY R) LEG 9 DAYS AGO Time Seen by Provider: 09/03/25 19:19 Arrival date/time: 09/03/25 17:48 65-year-old female reports with complaints of right lower leg pain. Patient had x-ray this morning that showed no evidence of fracture but her primary care provider sent her to the emergency department for assistive walking device. Patient denies numbness or tingling or weakness of the leg. Patient reports pain with ambulation. Patient states that she has pain medications at home and declined to have any today Limitations: no limitations Related Data Previous Rx's ?Medication ?Instructions ?Recorded inhalational spacing device #1 ea 01/13/24 (BreatheRite Valved MDI Chamber spacer) naloxone 4 mg/actuation nasal 4 mg intranasal Q2M PRN opioid 04/03/24 spray (Narcan) overdose #2 ea fexofenadine 180 mg tablet 180 mg PO QDAY #30 tabs montelukast 10 mg tablet 10 mg PO QDAY 30 days #30 ta bs 10/23/24 nystatin 100,000 unit/gram topical 1 applic topical BI D #30 grams 10/23/24 powder trazodone 50 mg tablet 50 mg PO QHS 30 days #30 tab s 10/23/24 albuterol sulfate 90 mcg/actuation 2 inh inhalation Q6 H PRN shortness 10/24/24 breath activated powder inhaler of breath or wheezing #1 ea rizatriptan 10 mg tablet 10 mg PO .COMPLEX #30 tabs 0 04/10/25 diclofenac sodium 1 % topical gel 4 g topical QID #3 t ubes 06/06/25 (Arthritis Pain (diclofenac)) ondansetron HCl 4 mg tablet 4 mg PO Q8H PRN nausea and 06/06/25 vomiting #90 tabs atorvastatin 20 mg tablet (Lipitor) 20 mg PO QDAY #20 tabs 07/04/25 epinephrine 0.3 mg/0.3 mL 0.3 mg (0.3 mL) IM Q5-15M UT N 07/04/25 injection, auto-injector (EpiPen) anaphylaxis #1 ea triamcinolone acetonide 0.5 % 1 applic topical BID #15 grams 07/04/25 topical cream methocarbamol 750 mg tablet 750 mg PO TID PRN muscle p ain 30 07/17/25 days #90 tabs oxycodone 10 mg tablet 10 mg PO TID PRN pain #90 ta bs 08/26/25 paroxetine HCl 30 mg tablet 30 mg PO QDAY 30 days #30 tabs 08/26/25 Allergies Allergy/AdvReac Type Severity Reaction Status Date / Time bacitracin (From Allergy Intermediate Rash Verified 09/03/25 17:52 Polysporin(bacitracin base)) neomycin Allergy Intermediate Rash Verified 09/03/25 17:52 polymyxin B (From Allergy Intermediate Rash Verified 09/03/25 17:52 Polysporin(bacitracin base)) bee venom protein (honey bee) AdvReac Severe Anaphylaxis Verified 09/03/25 17:52 red ants AdvReac Severe Anaphylaxis Uncoded 09/03/25 17:52 Review of Systems Constitutional Constitutional: Denies chills and Denies fever(s) Musculoskeletal Musculoskeletal: Reports arthralgias, Denies deformity, Denies joint swelling, Denies numbness and Denies tingling Integumentary/Breasts Skin/Breast: Denies unusual bruising and Denies wounds Neurologic Neurologic: Denies numbness and Denies tingling Past Medical History Past Medical History NEUROLOGIC: Positive Migraine and Spinal Cord Injury CARDIAC: Negative Hypercholesterolemia, Congestive Heart Failure or Hypertension RESPIRATORY: Positive Asthma; Negative Chronic Obstructive Pulmonary Disease (COPD) GASTROINTESTINAL: Positive Gall Bladder Disease, Gastrointestinal Bleed and Diverticulitis GENITOURINARY: Positive Genitourinary Disorders; Negative Renal Disease REPRODUCTIVE: Positive Breast Cancer, Endometriosis and Uterine Prolapse MUSCULOSKELETAL: Positive Arthritis and Fractures ENT: Positive Ear Infection ENDOCRINE: Negative Diabetes Mellitus Type 1 or Diabetes Mellitus Type 2 PSYCHO/SOCIAL: Positive Anxiety OTHER HISTORY: Positive Radiation Therapy, Chicken Pox, Measles and Breast Can cer; Negative Chemotherapy Surgical History SURGICAL: Positive Ear Surgery, Eye Surgery, Abdominal Surgery, Gastric Bypass Surgery, Neurologic Surgery, Mastectomy (jace.) and Hysterectomy Social History SMOKING STATUS: Never smoker SECOND HAND EXPOSURE: No SUBSTANCE USE: does not use ED Exam General Limitations: Present no limitations General appearance: Present alert and in no apparent distress Expanded Lower Extremity Exam Knee exam: Present normal inspection and full ROM Lower leg exam: Present normal inspection, full ROM and tenderness (Right distal anterior leg but no ecchymosis no erythema no swelling) Ankle exam: Present normal inspection and full ROM Foot/toe exam: Present normal inspection and full ROM Gait: antalgic Neurological Exam Neurological exam: Present alert, oriented X3 and CN II-XII intact Psychiatric Psychiatric exam: Present normal affect and normal mood Skin Skin exam: Present warm, dry, intact and normal color Course Quality Measures none Orders Category Date Time Status immobilizer [Splint / Immobilizer] STAT Care 09/03/25 19:33 Active Vital Signs Vital signs: Vital Signs Temperature 98.5 F 09/03/25 19:23 Pulse Rate 76 09/03/25 19:23 Respiratory Rate 18 09/03/25 19:23 Blood Pressure 154/87 H 09/03/25 19:23 Pulse Oximetry (%) 97 09/03/25 19:23 Oxygen Delivery Method Room Air 09/03/25 19:23 Extremity Injury, Lower Patient data External records reviewed:: None Clinical information provided by:: patient Social determinants that could affect healthcare access:: none Patient has the following chronic illnesses:: none How is presenting disease/condition affected by chronic disease/condition?: no chronic disease Evaluation data The following diagnostics were reviewed and interpreted by me:: other (specify) (none) Lab and/or radiology exams considered but not ordered:: none Interpretation Summary: n/a Medications / Prescriptions Medications or Prescriptions considered but not ordered:: none Medication administrations:: none Consultations Consultation(s) initiated? (list below): No Diagnosis Most likely diagnosis given after review of the tests above:: Leg contusion Admission Indicated Admission indicated?: not indicated Admission Request Was there a request for admission?: No Disposition Plan Disposition Plan: Discharge Discharge Attestation Discharge Attestation: The patient and all family members were given an opportunity to ask questions and understood the discharge instructions. Discharge instructions specifically effects, indications for sooner follow up or return to the emergency department, and the expected course of current diagnosis. Patient condition: Stable Discharge Plan Plan Patient Disposition: HOME (Self Care) Prescriptions/Referrals Prescriptions/Med Rec: No Action (DME) BreatheRite Valved MDI Chamber Spacer See Rx Instructions .Route Qty: 1 0RF Rx Instructions: As directed naloxone [Narcan] 4 mg/actuation spray,non-aerosol 4 mg intranasal Q2M PRN (Reason: opioid overdose) Qty: 2 0RF Patient Comments: has not used it but does have access to medication Rx Instructions: spray 1 dose into ONE nostril; alternate nostrils w each dose fexofenadine 180 mg tablet 180 mg PO QDAY MDD 180 mg Qty: 30 5RF diclofenac sodium [Arthritis Pain (diclofenac)] 1 % gel 4 g topical QID Qty: 3 3RF Rx Instructions: apply to single knee, ankle, foot; for foot includes sole/toes/top of foot ondansetron HCl 4 mg tablet 4 mg PO Q8H PRN (Reason: nausea and vomiting) Qty: 90 1RF montelukast 10 mg tablet 10 mg PO QDAY 30 Days Qty: 30 3RF nystatin 100,000 unit/gram powder 1 applic topical BID Qty: 30 0RF trazodone 50 mg tablet 50 mg PO QHS 30 Days Qty: 30 2RF albuterol sulfate 90 mcg/actuation aerosol powdr breath activated 2 inh inhalation Q6H PRN (Reason: shortness of breath or wheezing) Qty: 1 3RF atorvastatin [Lipitor] 20 mg tablet 20 mg PO QDAY Qty: 20 0RF triamcinolone acetonide 0.5 % cream 1 applic topical BID Qty: 15 0RF epinephrine [EpiPen] 0.3 mg/0.3 mL auto-injector 0.3 mg IM Q5-15M PRN (Reason: anaphylaxis) Qty: 1 0RF Rx Instructions: do not exceed 3 doses per episode rizatriptan 10 mg tablet 10 mg PO .COMPLEX Qty: 30 5RF Rx Instructions: 10 mg orally as needed, at most three tablets per day methocarbamol 750 mg tablet 750 mg PO TID PRN (Reason: muscle pain) 30 Days Qty: 90 1RF paroxetine HCl 30 mg tablet 30 mg PO QDAY 30 Days Qty: 30 3RF oxycodone 10 mg tablet 10 mg PO TID MDD 4 PRN (Reason: pain) Qty: 90 0RF Problem List Clinical Impression: Contusion of left leg Patient/Caregiver Discharge Instructions Discharge Activity: activity as tolerated Education Materials: ED Contusion, Lower Extremity Additional Instructions: Use walker as needed follow-up with your primary care provider as directed Print Language: Turkmen Stand Alone Forms: Fidelia Award Info., Patient Portal Info Letter
== END 2025-09-03 20:27 | disposition home or self-care (01) ==
LOC: SERX 21:33
PROVIDERS: Emergency Provider Emergency Medicine
DX: S80.12XA Contusion of left lower leg, initial encounter (principal); X58.XXXA Exposure to other specified factors, initial encounter
CPT/HCPCS: 99281

== ENCOUNTER → 2025-09-03 | Outpatient (CLI) | payer MEDICARE, MEDICAID, SELFPAY ==
--- NOTE | 2025-09-03 16:35 | XR_ITS ---
EXAMINATION: Ankle, right 3 views. Technique: Ankle AP, oblique, lateral 3 views Date and time of exam: September 03, 2025, 1638 hours INDICATIONS: Right ankle and lower leg pain post injury 10 days ago. FINDINGS: Moderate osteopenia. No acute ankle fracture No dislocation IMPRESSION: No acute ankle fracture
--- NOTE | 2025-09-03 16:35 | XR_ITS ---
Examination: Tibia-Fibula, right, 2 views Technique: Tibia-fibula AP lateral 2 views Date and time of exam: September 03, 2025, 1638 hours INDICATIONS: Injury to the lower leg 10 days ago with lower leg pain. FINDINGS: No acute fracture No dislocation No foreign body IMPRESSION: No acute fracture
== END | disposition home or self-care (01) ==
DX: S99.911A Unspecified injury of right ankle, initial encounter (principal); S89.91XA Unspecified injury of right lower leg, initial encounter; X58.XXXA Exposure to other specified factors, initial encounter
CPT/HCPCS: 73590; 73610

== ENCOUNTER 2025-09-10 12:57 | Outpatient (AMB) | payer MEDICARE, MEDICAID, SELFPAY ==
[2025-09-10 13:14] VITALS: BP 125/81; PULSE 71; RESP 18; TEMP 36.4; O2SAT 93; BMI 33.3
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
== END 2025-09-10 13:46 | disposition home or self-care (01) ==
LOC: HODAHC 12:57
DX: S99.911A Unspecified injury of right ankle, initial encounter (principal); X58.XXXA Exposure to other specified factors, initial encounter; H60.91 Unspecified otitis externa, right ear
CPT/HCPCS: 99214; G0463

== ENCOUNTER 2025-09-17 13:16 | Outpatient (AMB) | payer MEDICARE, MEDICAID, SELFPAY ==
[2025-09-17 13:28] VITALS: BP 115/78; PULSE 79; RESP 20; TEMP 36.7; O2SAT 100
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
== END 2025-09-17 14:17 | disposition home or self-care (01) ==
LOC: HODAHC 13:16
PROVIDERS: Supervising Provider Internal Medicine; Visit Provider Student in an Organized Health Care Education/Training Program
DX: H60.91 Unspecified otitis externa, right ear (principal); J30.2 Other seasonal allergic rhinitis
CPT/HCPCS: 99214; G0463

== ENCOUNTER 2025-09-24 10:26 | Emergency (ER) | payer MEDICARE, MEDICAID, SELFPAY ==
[2025-09-24 10:56] VITALS: BP 138/85; PULSE 79; RESP 18; TEMP 37.6; O2SAT 97; BMI 32.5
--- NOTE | 2025-09-24 11:06 | XR_ITS ---
EXAMINATION: PA chest single view TECHNIQUE: Upright PA chest single view Date and time: September 24, 2025, 1148 hours INDICATIONS: Chest pain shortness of breath coughing beginning 1 week ago FINDINGS: Minimal prominence left ventricle Left axillary surgical clips No pneumonia or pulmonary edema Prominent osteopenia IMPRESSION: No pneumonia or pulmonary edema
--- NOTE | 2025-09-24 11:06 | EKG_ITS ---
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: : 1960 Requested By: Lane Farris Order Number: [id number] Reading MD: Lane Farris Measurements Intervals [place] Rate: 79 P: 46 HI: 184 QRS: 218 QRSD: 109 T: 42 QT: 363 QTc: 417 Interpretive Statements SINUS RHYTHM INDETERMINATE AXIS INCOMPLETE RIGHT BUNDLE BRANCH BLOCK [90+ ms QRS DURATION, TERMINAL R IN V1/V2, 40+ ms S IN I/aVL/V4/V5/V6] POSSIBLE ANTERIOR MYOCARDIAL INFARCTION , PROBABLY OLD [30 ms Q WAVE IN V3/V4, OR R < 0.2 mV IN V4] Compared to ECG 06/29/2025 20:11:47 Indeterminate axis now present Incomplete right bundle-branch block now present Myocardial infarct finding still present /store/S0/[id number]/ecg/[id number].pdf
[2025-09-24] MEDS: ALBUTEROL/IPRATROPIUM (Duoneb) RT SOL 3 ML NEBU INH (11:24)
[2025-09-24 11:26] VITALS: PULSE 84; RESP 20; O2SAT 98
[2025-09-24 11:56] LABS: Collection Type, Urine Voided
[2025-09-24 12:03] LABS: Bacteria,Urine Rare; Bilirubin,Urine Negative (Negative); Blood,Urine Negative (Negative); Clarity,Urine Clear (Clear/Hazy); Color,Urine Colorless (Lt Yel-Yel); Glucose, Urine Negative (Negative); Ketones,Urine Negative (Negative); Leukocyte Esterase,Urine Negative (Negative); Nitrite,Urine Negative (Negative); PH,Urine 6.0 (5.0-7.0); Protein,Urine Negative (Neg - Trace); RBC,Urine 2 /hpf (0-3); Specific Gravity,Urine 1.006 (1.001-1.035); Squamous Epithelial Cell,Urine 1 /hpf (0-5); Urobilinogen,Urine Negative mg/dL (0.0-1.0); WBC,Urine < 1 /hpf (0-5)
[2025-09-24 12:04] LABS: Basophils # (Auto) 0.0 Thou/mm3 (0.0-0.2); Basophils % (Auto) 1 % (0-2.5); Eosinophils # (Auto) 0.1 Thou/mm3 (0.0-0.5); Eosinophils % (Auto) 1 % (0-10); Hematocrit 42.5 % (36.0-46.0); Hemoglobin 14.1 g/dL (12.0-16.0); Immature Granulocytes Auto 0.02 Thou/mm3 (0.00-0.00); Lymphocytes # (Auto) 0.9 Thou/mm3 (1.0-4.8); Lymphocytes % (Auto) 14 % (10-50); Mean Corpuscular HGB Conc 33.2 g/dl (31.0-37.0); Mean Corpuscular Hemoglobin 30.7 pg (25.0-35.0); Mean Corpuscular Volume 92 fL (80-100); Monocytes # (Auto) 0.6 Thou/mm3 (0.0-0.8); Monocytes % (Auto) 8 % (0-12); Neutrophils # (Auto) 5.3 Thou/mm3 (1.8-7.7); Neutrophils % (Auto) 76 % (37-80); Nucleated Red Blood Cell # 0.00 Thou/mm3 (0.00-0.00); Nucleated Red Blood Cell % 0 /100 WBC (0); Platelet Count 214 Thou/mm3 (140-440); RDW Standard Deviation 46.5 fL (36.4-46.3); Red Blood Count 4.60 Miln/mm3 (4.00-5.20); White Blood Count 7.0 Thou/mm3 (3.6-11.0)
[2025-09-24 12:08] LABS: HCG Qualitative,Urine Negative
[2025-09-24 12:18] LABS: B-Type Natriuretic Peptide 114 pg/mL (0-100)
[2025-09-24 12:25] LABS: Alanine Aminotransferase 12 U/L (10-49); Albumin, Serum 4.4 gm/dL (3.4-4.8); Albumin/Globulin Ratio 1.4 (1.2-2.2); Alkaline Phosphatase 68 U/L (46-116); Anion Gap 9 (7-16); Aspartate Amino Transferase < 8 U/L (0-34); BUN/Creatinine Ratio 7 Ratio (12-20); Bilirubin,Total 0.7 mg/dL (0.3-1.2); Blood Urea Nitrogen 9 mg/dL (9-23); Calcium 9.6 mg/dL (8.3-10.6); Calcium (Corrected) 9.6 mg/dL (8.5-10.1); Carbon Dioxide 28.5 mMol/L (20.0-31.0); Chloride 104 mMol/L (98-107); Creatinine (Component) 1.3 mg/dL (0.6-1.3); Estimated Creatinine Clearance 45.2 mL/min (>60); Globulin 3.1 gm/dL (2.3-3.5); Glucose 107 mg/dL (74-106); Osmolality,Calculated 279 (275-295); Potassium 4.0 mMol/L (3.4-5.1); Sodium 141 mMol/L (136-145); Total Protein 7.5 gm/dL (5.7-8.2); Troponin I < 0.020 ng/mL (0.0-0.045); eGFR 45 See Note
--- NOTE | 2025-09-24 12:32 | EDNOTE_ITS ---
ED Asthma RME/HPI General Chief Complaint: Shortness of Breath/Dyspnea Stated Complaint: SOB, COUGH, ASTHMA Time Seen by Provider: 09/24/25 10:51 Arrival date/time: 09/24/25 10:26 This is a case of 65-year-old female with history of asthma chronic kidney disease sinus infection SVT bronchitis came in in the emergency room due to productive cough with nasal congestion for 7 days persistence of the symptoms now with shortness of breath but no chest pain this patient decided to sought consult here in the emergency room patient also have bilateral ear pain seen by the PCP 5 days ago and was treated with amoxicillin but still with pain thus decided to start consult also here for ear pain Limitations: no limitations Related Data Previous Rx's ?Medication ?Instructions ?Recorded inhalational spacing device #1 ea 01/13/24 (BreatheRite Valved MDI Chamber spacer) naloxone 4 mg/actuation nasal 4 mg intranasal Q2M PRN opioid 04/03/24 spray (Narcan) overdose #2 ea fexofenadine 180 mg tablet 180 mg PO QDAY #30 tabs montelukast 10 mg tablet 10 mg PO QDAY 30 days #30 ta bs 10/23/24 nystatin 100,000 unit/gram topical 1 applic topical BI D #30 grams 10/23/24 powder trazodone 50 mg tablet 50 mg PO QHS 30 days #30 tab s 10/23/24 albuterol sulfate 90 mcg/actuation 2 inh inhalation Q6 H PRN shortness 10/24/24 breath activated powder inhaler of breath or wheezing #1 ea rizatriptan 10 mg tablet 10 mg PO .COMPLEX #30 tabs 0 04/10/25 diclofenac sodium 1 % topical gel 4 g topical QID #3 t ubes 06/06/25 (Arthritis Pain (diclofenac)) ondansetron HCl 4 mg tablet 4 mg PO Q8H PRN nausea and 06/06/25 vomiting #90 tabs atorvastatin 20 mg tablet (Lipitor) 20 mg PO QDAY #20 tabs 07/04/25 epinephrine 0.3 mg/0.3 mL 0.3 mg (0.3 mL) IM Q5-15M IL N 07/04/25 injection, auto-injector (EpiPen) anaphylaxis #1 ea triamcinolone acetonide 0.5 % 1 applic topical BID #15 grams 07/04/25 topical cream oxycodone 10 mg tablet 10 mg PO TID PRN pain #90 ta bs 08/26/25 amoxicillin 875 mg-potassium 1 tab PO BID 10 days #20 tabs 09/17/25 clavulanate 125 mg tablet fluticasone propionate 50 1 spray intranasal QDAY 10 d ays 09/17/25 mcg/actuation nasal #16 grams spray,suspension (Flonase Allergy Relief) methocarbamol 750 mg tablet 750 mg PO TID PRN muscle p ain 30 09/17/25 days #90 tabs paroxetine HCl 30 mg tablet 30 mg PO QDAY 30 days #30 tabs 09/17/25 albuterol sulfate 90 mcg/actuation 1 puff inhalation Q 4H PRN 09/24/25 aerosol inhaler (Ventolin HFA) shortness of breath or wheezing #8.5 grams amoxicillin 875 mg-potassium 1 tab PO BID #20 tabs clavulanate 125 mg tablet ofloxacin 0.3 % ear drops 5 drp otic (ear) BID 7 days #10 mL 09/24/25 prednisone 20 mg tablet 20 mg PO QDAY 5 days #5 tabs 09/24/25 promethazine-DM 6.25 mg-15 mg/5 mL 5 ml PO Q4H PRN cou gh #118 mL 09/24/25 oral syrup Allergies Allergy/AdvReac Type Severity Reaction Status Date / Time bacitracin (From Allergy Intermediate Rash Verified 09/24/25 10:29 Polysporin(bacitracin base)) neomycin Allergy Intermediate Rash Verified 09/24/25 10:29 polymyxin B (From Allergy Intermediate Rash Verified 09/24/25 10:29 Polysporin(bacitracin base)) bee venom protein (honey bee) AdvReac Severe Anaphylaxis Verified 09/24/25 10:29 red ants AdvReac Severe Anaphylaxis Uncoded 09/24/25 10:29 Review of Systems Review of Systems Systems Reviewed: All systems reviewed, normal except as documented Past Medical History Past Medical History NEUROLOGIC: Positive Migraine and Spinal Cord Injury CARDIAC: Negative Hypercholesterolemia, Congestive Heart Failure or Hypertension RESPIRATORY: Positive Asthma; Negative Chronic Obstructive Pulmonary Disease (COPD) GASTROINTESTINAL: Positive Gall Bladder Disease, Gastrointestinal Bleed and Diverticulitis GENITOURINARY: Positive Genitourinary Disorders; Negative Renal Disease REPRODUCTIVE: Positive Breast Cancer, Endometriosis and Uterine Prolapse MUSCULOSKELETAL: Positive Arthritis and Fractures ENT: Positive Ear Infection ENDOCRINE: Negative Diabetes Mellitus Type 1 or Diabetes Mellitus Type 2 PSYCHO/SOCIAL: Positive Anxiety OTHER HISTORY: Positive Radiation Therapy, Chicken Pox, Measles and Breast Cancer; Negative Chemotherapy Surgical History SURGICAL: Positive Ear Surgery, Eye Surgery, Abdominal Surgery, Gastric Bypass Surgery, Neurologic Surgery, Mastectomy (jace.) and Hysterectomy Social History SMOKING STATUS: Never smoker SECOND HAND EXPOSURE: No SUBSTANCE USE: does not use ED Exam General Limitations: Present no limitations General appearance: Present alert, in no apparent distress and other (Patient is awake alert oriented not in distress nontoxic looking well-hydrated well no) Head Head exam: Present atraumatic, normocephalic and normal inspection Eye Eye exam: Present normal appearance, PERRL and EOMI ENT ENT exam: Present normal exam, normal oropharynx, mucous membranes moist and other (Nose and throat were normal bilateral ear canal noted red with subjective yellowish discharge mild tender but no swelling no mastoid tenderness bilaterally no earwax no foreign body tympanic membrane was bulging red not perforated) Neck Neck exam: Present normal inspection, full ROM, trachea midline and other (Negative for meningeal sign); Absent tenderness, meningismus or lymphadenopathy Chest Chest inspection: Present normal inspection and symmetric chest wall rise; Absent tenderness Respiratory Respiratory exam: Present normal lung sounds bilaterally and wheezes (Wheezing both lower lung roland no crackles no rales no rhonchi no retraction no stridor); Absent respiratory distress Cardiovascular Cardiovascular exam: Present regular rate, normal rhythm and normal heart sounds; Absent bradycardia, irregular rhythm, systolic murmur or diastolic murmur Abdominal Exam Abdominal exam: Present soft and normal bowel sounds; Absent distention, tenderness, guarding, rebound, rigidity, diminished bowel sounds, hypoactive bowel sounds or organomegaly Extremities Exam Extremities exam: Present normal inspection and full ROM Back Exam Back exam: Present normal inspection and full ROM Neurological Exam Neurological exam: Present alert, oriented X3, CN II-XII intact, normal gait and reflexes normal; Absent motor sensory deficit Psychiatric Psychiatric exam: Present normal affect and normal mood Skin Skin exam: Present warm, dry, intact, normal color and other (Excellent skin turgor) Course Quality Measures none Orders Category Date Time Status EKG (ED ONLY) *Do not use* NOW Care 09/24/25 11:06 Completed EKG (ED Only) Stat Exams 09/24/25 11:06 Draft XR chest 1V Stat Exams 09/24/25 11:06 Completed BNP [B-Type Natriuretic Peptide] Stat Lab 09/24/25 11:39 Completed CBC Stat Lab 09/24/25 11:39 Received CMP [Comprehensive Metabolic Panel] Stat Lab 09/24/25 11:39 Completed HCG Qualitative,Urine Stat Lab 09/24/25 11:52 Completed Troponin I Stat Lab 09/24/25 11:39 Completed Urinalysis Stat Lab 09/24/25 11:52 Completed Albuterol/Ipratr Rt Joan [Duoneb Rt Joan] Med 09/24/25 11:12 Discontinued 3 ml .ROUTE .STK-MED ONE Albuterol/Ipratr Rt Joan [Duoneb Rt Joan] Med 09/24/25 11:06 Discontinued 3 ml INH X1 ONE cefTRIAXone [Rocephin] 1,000 mg Med 09/24/25 11:07 Discontinued Lidocaine 1% Pf Vial 5ml [Xylocaine 1% Pf 5 ml] 2.1 ml IM X1 dexAMETHasone INJ [Decadron Inj] Med 09/24/25 11:06 Discontinued 10 mg IM X1 ONE Vital Signs Vital signs: Vital Signs Temperature 99.7 F 09/24/25 10:56 Pulse Rate 79 09/24/25 10:56 Respiratory Rate 18 09/24/25 10:56 Blood Pressure 138/85 H 09/24/25 10:56 Pulse Oximetry (%) 97 09/24/25 10:56 Oxygen Delivery Method Room Air 09/24/25 10:56 Oxygen saturation is 97% on room air Asthma MDM Narrative MDM Narrative:: This is a case of 65-year-old female with history of asthma chronic kidney disease sinus infection SVT bronchitis came in in the emergency room due to productive cough with nasal congestion for 7 days persistence of the symptoms now with shortness of breath but no chest pain this patient decided to sought consult here in the emergency room patient also have bilateral ear pain seen by the PCP 5 days ago and was treated with amoxicillin but still with pain thus decided to start consult also here for ear pain physical examination patient is awake alert oriented not in distress nontoxic looking well-hydrated well- nourished BP stable 138/85 patient is not tachycardic not tachypneic afebrile nonhypoxic oxygen saturation is 98% in room air patient negative for meningeal sign HEENT showed throat and nose were normal bilateral tympanic membrane was red bulging but not perforated ear canal noted to have suppurative discharge yellowish in color tender to touch red but no wax no foreign body no mastoid tenderness bilaterally suggestive of acute suppurative otitis media patient noted both wheezing on both lower lung field no crackles no rales no retraction no stridor heart normal rate regular rhythm no murmur the rest of the physical examination were normal and unremarkable blood test showed no leukocytosis no anemia liver function is normal BUN and creatinine is normal but the eGFR eGFR showed 46 the last eGFR visit was 57 it means that the kidney function is getting low thus the patient was advised to follow-up with sales agent food vending service for his her chronic kidney disease patient was given breathing treatment and Solu-Medrol after 30 minutes patient was reassessed wheezing resolved no shortness of breath patient will follow-up with PCP to be referral also [facility] for his asthma exacerbation at this point I will change the amoxicillin to Augmentin patient was given ceftriaxone IM for acute suppurative otitis media patient was also given otic drops patient will follow-up with PCP in 2 days for reevaluation and for any worsening symptoms and emergent concern return precaution in the ER at the time of exam no signs and symptoms of sepsis dehydration or hypoxia patient EKG and troponin is also normal Patient was discharged with comfortable condition walking with stable gait. Patient verbalized no further complains explained diagnosis and answered patient question. Patient is comfortable with the proposed management plan including the need to follow up with his/her primary care physician and any specialist if applicable Discussed patient for any urgent condition or worsening sx, He/She needed to go to emergency room immediately or call 911. Patient acknowledge the responsibility to follow up as instructed and to monitor her/his symptoms. For any persistence of the symptoms for more than 3-5 days return precaution advised. Discussed the result of the test and was given printed discharge instruction Patient data External records reviewed:: [facility] previous records Clinical information provided by:: patient Social determinants that could affect healthcare access:: none Patient has the following chronic illnesses:: None How is presenting disease/condition affected by chronic disease/condition?: no chronic disease Evaluation data The following diagnostics were reviewed and interpreted by me:: lab results, radiology exam(s) and EKG tracing(s) Lab and/or radiology exams considered but not ordered:: Reviewed Interpretation Summary: Reviewed Medications / Prescriptions Medications or Prescriptions considered but not ordered:: Given Medication administrations:: Medication Administration History Discontinued Medications Albuterol/Ipratropium (Albuterol/Ipratropium (Duoneb) Rt Joan 3 Ml Nebu) 3 ml INH X1 ONE Stop: 09/24/25 11:07 Last Admin: 09/24/25 11:24 Dose: 3 ml Documented By: NOEMÍ Albuterol/Ipratropium (Albuterol/Ipratropium (Duoneb) Rt Joan 3 Ml Nebu) Confirm Administered Dose 3 ml .ROUTE .STK-MED ONE Stop: 09/24/25 11:13 Ceftriaxone Sodium 1,000 mg/ (Lidocaine HCl 2.1 ml) 0 mg IM X1 ONE Stop: 09/24/25 11:08 Last Admin: 09/24/25 12:14 Dose: 1,000 mg Documented By: INEZ Dexamethasone Sodium Phosphate (Dexamethasone Sod Phos Inj 10 Mg/Ml Vial) 10 mg IM X1 ONE Stop: 09/24/25 11:07 Last Admin: 09/24/25 11:24 Dose: 10 mg Documented By: INEZ Given Consultations Consultation(s) initiated? (list below): No Diagnosis Differential diagnosis asthma: Acute exacerbation, Acute asthmatic bronchitis and Pneumonia Most likely diagnosis given after review of the tests above:: Asthmatic bronchitis Admission Indicated Admission indicated?: not indicated Explain why admission is indicated or not indicated:: Not indicated Admission Request Was there a request for admission?: No Disposition Plan Disposition Plan: Discharge Discharge Attestation Discharge Attestation: The patient and all family members were given an opportunity to ask questions and understood the discharge instructions. Discharge instructions specifically effects, indications for sooner follow up or return to the emergency department, and the expected course of current diagnosis. Patient condition: Stable Discharge Plan Plan Patient Disposition: HOME (Self Care) Patient condition on transfer: Stable Prescriptions/Referrals Prescriptions/Med Rec: New amoxicillin-pot clavulanate 875-125 mg tablet 1 tab PO BID Qty: 20 0RF promethazine-DM 6.25-15 mg/5 mL syrup 5 ml PO Q4H PRN (Reason: cough) Qty: 118 0RF prednisone 20 mg tablet 20 mg PO QDAY 5 Days Qty: 5 0RF ofloxacin 0.3 % drops 5 drp otic (ear) BID 7 Days Qty: 10 0RF albuterol sulfate [Ventolin HFA] 90 mcg/actuation HFA aerosol inhaler 1 puff inhalation Q4H PRN (Reason: shortness of breath or wheezing) Qty: 8.5 0RF Rx Instructions: Please give No Action (DME) BreatheRite Valved MDI Chamber Spacer See Rx Instructions .Route Qty: 1 0RF Rx Instructions: As directed naloxone [Narcan] 4 mg/actuation spray,non-aerosol 4 mg intranasal Q2M PRN (Reason: opioid overdose) Qty: 2 0RF Patient Comments: has not used it but does have access to medication Rx Instructions: spray 1 dose into ONE nostril; alternate nostrils w each dose fexofenadine 180 mg tablet 180 mg PO QDAY MDD 180 mg Qty: 30 5RF diclofenac sodium [Arthritis Pain (diclofenac)] 1 % gel 4 g topical QID Qty: 3 3RF Rx Instructions: apply to single knee, ankle, foot; for foot includes sole/toes/top of foot ondansetron HCl 4 mg tablet 4 mg PO Q8H PRN (Reason: nausea and vomiting) Qty: 90 1RF montelukast 10 mg tablet 10 mg PO QDAY 30 Days Qty: 30 3RF nystatin 100,000 unit/gram powder 1 applic topical BID Qty: 30 0RF trazodone 50 mg tablet 50 mg PO QHS 30 Days Qty: 30 2RF albuterol sulfate 90 mcg/actuation aerosol powdr breath activated 2 inh inhalation Q6H PRN (Reason: shortness of breath or wheezing) Qty: 1 3RF atorvastatin [Lipitor] 20 mg tablet 20 mg PO QDAY Qty: 20 0RF triamcinolone acetonide 0.5 % cream 1 applic topical BID Qty: 15 0RF epinephrine [EpiPen] 0.3 mg/0.3 mL auto-injector 0.3 mg IM Q5-15M PRN (Reason: anaphylaxis) Qty: 1 0RF Rx Instructions: do not exceed 3 doses per episode fluticasone propionate [Flonase Allergy Relief] 50 mcg/actuation spray,suspension 1 spray intranasal QDAY 10 Days Qty: 16 0RF Rx Instructions: administer into each nostril amoxicillin-pot clavulanate 875-125 mg tablet 1 tab PO BID 10 Days Qty: 20 0RF methocarbamol 750 mg tablet 750 mg PO TID PRN (Reason: muscle pain) 30 Days Qty: 90 1RF paroxetine HCl 30 mg tablet 30 mg PO QDAY 30 Days Qty: 30 3RF rizatriptan 10 mg tablet 10 mg PO .COMPLEX Qty: 30 5RF Rx Instructions: 10 mg orally as needed, at most three tablets per day oxycodone 10 mg tablet 10 mg PO TID MDD 4 PRN (Reason: pain) Qty: 90 0RF Referrals: No Primary/Family,Physician [Primary Care Provider] - In 1 week Problem List Clinical Impression: AB (asthmatic bronchitis), Acute suppurative otitis media, Chronic kidney disease Patient/Caregiver Discharge Instructions Education Materials: Acute Bronchitis, CKD Dc, ED Otitis Media Antibiotic ..., Asthma Additional Instructions: It is also important to follow-up with your sales agent food vending service for further evaluation and treatment of your chronic kidney disease it is also important to see [facility] for your asthma exacerbation follow-up with your primary care phys ician to be referred to the above specialist worsening persistent regardless of the symptoms call 911 or go to the nearest emergency room take your medication as directed stop taking amoxicillin instead start taking Augmentin for 10 days finish the course of antibiotic use the otic drops keep hydrated no Q-tips no cotton balls prevent water to enter both ears is advised Print Language: Japanese Stand Alone Forms: [employer] Award Info., Patient Portal Info Letter PA/PIN ATTACHER Supervising Physician PA/VERNON Supervising Physician: dr mata
== END 2025-09-24 13:34 | disposition home or self-care (01) ==
PROVIDERS: Nurse Practitioner Family; Emergency Provider Family Medicine
DX: J45.901 Unspecified asthma with (acute) exacerbation (principal); H66.003 Acute suppurative otitis media without spontaneous rupture of ear drum, bilateral; N18.9 Chronic kidney disease, unspecified
CPT/HCPCS: 36415; 71045; 80053; 81001; 81025; 83880; 84484; 85025; 93005; 94640; 96372; 99284; J0696; J1100; J3490